=== PATIENT | female | born 1950 | race Caucasian/White ===

== ENCOUNTER 2024-11-19 04:08 | Inpatient (IN) | payer MEDICARE, SELFPAY ==
[2024-11-18 21:32] VITALS: BP 123/49
[2024-11-18 21:54] LABS: Hematocrit 28.6 % (37.0-47.0); Hemoglobin 9.1 g/dL (12.0-16.0); Mean Corp Hgb Conc. 31.8 g/dL (33.0-37.0); Mean Corpuscular Volume 80.6 fL (81.0-99.0); Nucleated Red Blood Cells % 0 %; Platelet Count 389 10^3/uL (130-400); Red Cell Dist. Width 16.7 % (11.5-14.5)
[2024-11-18 22:10] LABS: ALT (SGPT) 22 U/L (0-35); AST (SGOT) 30 U/L (14-36); Albumin 3.5 g/dl (3.5-5.0); Alkaline Phosphatase 89 U/L (38-126); Blood Urea Nitrogen 30 mg/dl (7-17); Calcium 10.1 mg/dl (8.4-10.2); Carbon Dioxide 21 mmol/L (22-30); Chloride 98 mmol/L (98-107); Potassium 4.1 mmol/L (3.5-5.1); Sodium 130 mmol/L (135-145); Total Protein 6.4 g/dl (6.3-8.2); eGFR 48.09
[2024-11-18 22:23] LABS: Glucose 688 mg/dl (70-99)
--- NOTE | 2024-11-18 23:08 | PHANOTE ---
11/18/2024, pt. gets her meds. filled at [facility] in [place]; pt. does not know the strength of any of the meds. she is taking; pharmacy records our outdated; pt. does not have recent ecw records; pharmacy closed at time of interview;
could not confirm pt.'s meds. at time of interview.
[2024-11-19] VITALS (22 sets, daily range): BP systolic 90–143; BP diastolic 39–77; BMI 25.1; BMI 26.6
[2024-11-19 00:02] LABS: Venous Blood Gas B.E. -3.1 mmol/L (-4 to +4); Venous Blood Gas O2 Sat % 91.3 %
[2024-11-19] MEDS: NOVOLIN R 10 UNITS SC (00:37)
[2024-11-19] MEDS: LASIX 80 MG IV (00:39)
--- NOTE | 2024-11-19 00:46 | ED.GENMED ---
History of Present Illness
General
Chief Complaint: Swelling
Source: patient
Time Seen by Provider: 11/19/24 00:08
History of Present Illness
History of Present Illness:
74-year-old female with past medical history of insulin-dependent diabetes, hyperlipidemia, chronic migraines, status post 'back surgery done at [place] due to osteoporosis' presenting to the emergency department for evaluation of feeling terrible
for the last few days, generally weak, bilateral lower extremity edema and shortness of breath. Patient states she noted her blood sugars being significantly elevated over the last 2 days greater than 500 despite taking her insulin. Family notes
that patient has had a progressive decline since being discharged from rehab over the last week or so. Patient did well postoperatively and pain has been under control, went to rehab following and did well there. Patient does admit to polyuria and
polydipsia. She does report good compliance with medications. No reported fevers. Patient does not believe she has been on any steroids recently. Daughter does note that the incision site did seem to have a little bit more redness today but no
reported fevers.
Past History
Past History
ED Past Medical History: Hypercholesterolemia and IDDM
ED Past Surgical History: , Gynecological and Orthopedic
Social History
Tobacco: Non-smoker
Alcohol: None
Drug: None
Personal:
Living: with family
Review of Systems
Review of Systems
All Other Systems: ROS reviewed and negative except as documented in HPI and ROS
Phy Exam
Physical Exam
Physical Exam:
GENERAL: Alert , ill-appearing
EYE: clear conjunctiva b/l
HEAD: NCAT
ENT: o/p clr, mmm.
CARDIAC: Regular rate and rhythm .
LUNGS: Clear breath sounds bilaterally, no acute respiratory distress, no wheezes/rales/rhonchi
ABDOMEN: Soft, without focal tenderness, no r/g, no cvat
NEUROLOGICAL: Alert and oriented
SKIN: Warm and dry, vertically oriented large incision to the mid thoracic spine extending towards the lumbar region with slight erythema more proximally and slight dehiscence of the wound but overall dry and without any purulent drainage
MUSCULOSKELETAL: significant bilateral lower extremity edema to the knees, well perfused.
PSYCH: Normal and appropriate interaction.
Scores
Heart Failure Risk
Heart Failure Risk Score: Not Applicable
Heart Score for Chest Pain Patients
STEMI patient?: Not applicable
Withdrawal Assessment of Alcohol
Withdrawal Assessment Completed?: Not applicable
Course
Orders/Labs/Results
Orders:
Orders
11/18/24 21:30
EKG [Electrocardiogram (*1)] Urgent
Reason for Study: Shortness of Breath
EKG- Treatment ONCE
11/18/24 21:40
B-Hydroxybutyrate Urgent
Comment: ADD ON
BNP [NT-proBNP] Urgent
CBC/With Diff [Complete Blood Count/With Diff] Urgent
CMP [Comprehensive Metabolic Panel] Urgent
Troponin I Urgent
Comment: ADD ON
11/18/24 23:03
Add On- LAB Urgent
Tests Added?: beta hydroxy
11/18/24 23:54
Venous Blood Gas Urgent
%Oxygen/Room Air: 21
11/19/24 00:18
Furosemide [Lasix] 80 mg IV NOW STA
Insulin Human Regular [Novolin R] 15 units SC NOW STA
11/19/24 00:19
US Periph Venous LOWER Ext Jorje Urgent
Comment:
Reason For Exam: edema, recent surgery
11/19/24 00:25
Add On- LAB Urgent
Tests Added?: troponin
Insulin Human Regular [Novolin R] 10 units SC NOW STA
11/19/24 00:35
BMP [Basic Metabolic Panel] Urgent
11/19/24 02:33
CXR2 [CR Chest - 2 Views ] Urgent
Comment:
Reason For Exam: CHF
11/19/24 02:44
Glucose Urgent
11/19/24 03:29
Dextrose 50%-Water [Dextrose 50% Syringe] 12.5 grams IV [id number] PRN
Diphenhydramine [Benadryl] 12.5 mg IV NOW STA
Insulin Human Regular [Novolin R] 5 units IV NOW STA
11/19/24 03:30
Bedside Glucose PRE IV Insulin- HyperK+ NOW
11/19/24 03:31
Admit/Transfer Patient As Directed
Co-Sign Provider:
Level of Care: Inpatient admission
Assign to:: IMU- Intermediate Care
Physician / Group: Jelani
Diagnosis: CHF
Reason for Hospitalization: CHF
Expected length of stay greater than two midnights?: Yes
ELOS- Estimated Length of Stay in days: 4
I certify the patient meets the requirements for IP care: Yes
PRN Pain Medication Management As Directed
May give lesser potent ordered pain med per pt: Yes
preference::
Protocol:: Medication orders for pain may be administered in a
manner that supports deferring to patient preference
when the pt is:
- Requesting an ordered lesser potent pain medication.
Least to most potent pain medications are defined
as: acetaminophen < NSAID < tramadol < opioids
(morphine, oxycodone, hydromorphone).
- Requesting a lesser dose of the same medication IF
ORDERED.
- Requesting a less intrusive route of administration
if both routes are prescribed by the provider (PO <
IV).
11/19/24 03:36
Code Status As Directed
Resuscitation Status: Full Code
11/19/24 04:00
Flush (0.9% Sodium Chloride) [Flush (Nss)] See Dose Instructions IV PER PROTOCOL
11/19/24 04:27
Blood Culture Q30M
DAVID Source: Blood/Venous
Specimen Description:
Blood Culture Q30M
DAVID Source: Blood/Venous
Specimen Description:
11/19/24 05:00
Bedside Glucose POST IV Insulin- HyperK+ Q1HX2,Q2HX2
11/19/24 05:15
Dextrose 50%-Water [Dextrose 50% Syringe] 12.5 grams IV [id number] PRN
Diphenhydramine [Benadryl] 12.5 mg IV Q4HPRN PRN
Glucagon [GlucaGen] 1 mg IM PRN PRN
HYDROmorphone [Dilaudid] 0.5 mg IV Q4HPRN PRN
11/19/24 05:15
Echo 2D MMode Doppler [Echo 2D MMode Color/Doppler] Routine
Reason for Study: CHF
CARDIOLOGY CONSULT Routine
Consulting Provider: August Tiwari
Was physician already notified: No
Reason for consult: CHF
Consult Notification Routine
Specialty to Notify: Cardiology
Date consulting provider notified: 11/19/24
Time consulting provider notified: :25
Notified:: Provider
Activity As Directed
Activity Level: Ambulate
With Assistance
Bedside Glucose Monitoring As Directed
Frequency: AC&HS
Additional Instructions:: Change to q6h if pt on TPN, tube feeding or not eating
Bladder Scan As Directed
Follow Bladder Retention/Intermittent Cath Algorithm?: Yes
PRN if no void in __ hours: 6
Frequency: Per Retention Algorithm
If Bladder Scan Result >: 400
then:: Straight cath
EKG with chest pain [ECG as needed] As Directed
ECG as needed for:: Chest Pain
I/O [Intake/ Output] As Directed
Frequency: Per unit guidelines
Orthostatic Vital Signs As Directed
Orthostatic VS Frequency: BID
Records Request [Obtain Records] As Directed
Dates of Information to be Released: Most Recent
Type of Information Requested: Entire Record
Obtain Records from: [facility] and [facility]
Straight Cath As Directed
Frequency: Per Retention Algorithm
Additional Instructions: straight cath as needed per acute urinary retention algorithm for 24 hrs
Additional Instructions: for bladder scan greater than 400 mL
Vital Signs As Directed
Frequency: Per unit guidelines
Weight As Directed
Frequency: Daily
Oxygen Therapy [O2 Therapy] [RESP] Routine
Titrate/Wean O2 to maintain O2 sat greater than (%): 94
Ot Eval And Treat Routine
PT Consult [Pt Eval And Treat] Routine
Activity Level: Ambulate
With Assistance
DX Deep Vein Thrombosis Video Routine
11/19/24 05:23
Basic Metabolic Panel IN AM
Complete Blood Count/No Diff IN AM
Ferritin Routine
Glycohemoglobin (HgbA1c) IN AM
Iron Routine
TSH Reflex To Free T4 Routine
Total Iron Binding Routine
Troponin I Q6H
11/19/24 Breakfast
2000 calorie (17 carb) Diabetic
At Your Request: Full Participation
Levothyroxine [Synthroid] 112 mcg PO DAILY @ 0600
11/19/24 07:30
Insulin Aspart Corrective Mod [Novolog Flexpen-Moderate Resistance] See Protocol SC AC
11/19/24 08:00
Acetaminophen [Tylenol] 1,000 mg PO TID
Aspirin Chewable [Low Strength Aspirin] 81 mg PO DAILY
Furosemide [Lasix] 40 mg IV BID AT 0800,1600
Loratadine [Claritin] 10 mg PO DAILY
insulin glargine [Lantus Solostar U-100 Insulin] 14 unit SC DAILY
11/19/24 12:23
Troponin I Q6H
11/19/24 18:00
Atorvastatin [Lipitor] 40 mg PO QPM
Enoxaparin Sodium [Lovenox] 40 mg SC QPM
Abnormal Lab Results
11/18/24 11/18/24 11/19/24
21:40 23:54 00:35
RBC 3.55 L 10^6/uL
(4.20-5.40)
Hgb 9.1 L g/dL
(12.0-16.0)
Hct 28.6 L %
(37.0-47.0)
MCV 80.6 L fL
(81.0-99.0)
MCH 25.6 L pg
(27.0-31.0)
MCHC 31.8 L g/dL
(33.0-37.0)
RDW 16.7 H %
(11.5-14.5)
MPV 11.1 H fL
(7.4-10.4)
Absolute Neuts (auto) 7.3 H 10^3/uL
(1.4-6.5)
Absolute Lymphs (auto) 1.1 L 10^3/uL
(1.2-3.4)
Neutrophils % 78.9 H %
(42.2-75.2)
Lymphocytes % 12.2 L %
(20.5-51.1)
VBG pO2 58 H mmHg
(30-50)
Sodium 130 L mmol/L 131 L mmol/L
(135-145) (135-145)
Carbon Dioxide 21 L mmol/L 21 L mmol/L
(22-30) (22-30)
BUN 30 H mg/dl 30 H mg/dl
(7-17) (7-17)
Creatinine 1.2 H mg/dL
(0.6-1.0)
Glucose 688 H* mg/dl 644 H* mg/dl
(70-99) (70-99)
Troponin I 0.320 H* ng/ml
B-Hydroxybutyrate 0.76 H mmol/L
(0.02-0.27)
POC Glucose
11/19/24 11/19/24 11/19/24
02:35 02:44 04:05
RBC
Hgb
Hct
MCV
MCH
MCHC
RDW
MPV
Absolute Neuts (auto)
Absolute Lymphs (auto)
Neutrophils %
Lymphocytes %
VBG pO2
Sodium
Carbon Dioxide
BUN
Creatinine
Glucose 434 H mg/dl
(70-99)
Troponin I
B-Hydroxybutyrate
POC Glucose 486 H* mg/dl 322 H mg/dl
(70-99) (70-99)
11/18/24 21:40
11/19/24 02:44
Vital Signs
Initial and Last Documented VS:
Initial Vital Signs
Temp Pulse Resp BP Pulse Ox
97.8 F 84 15 123/49 100
11/18/24 21:32 11/18/24 21:32 11/18/24 21:32 11/18/24 21:32 11/18/24 21:32
Last Documented Vital Signs
Temp Pulse Resp BP Pulse Ox
98.6 F 71 31 125/74 96
11/20/24 07:55 11/20/24 10:43 11/20/24 06:00 11/20/24 10:43 11/20/24 06:00
MDM/Problems Addressed
Differential Diagnosis Includes:
- DKA
- HHNK
- Hyperglycemia secondary to diabetes
- Postoperative complication
- CHF
- Valvular dysfunction
- DVT
- PE
- Postop hardware infection
MDM/Problems Addressed:
74-year-old female presenting to the emergency department for evaluation of generally feeling unwell, shortness of breath, fatigue and lower extremity edema. Also noting that her blood sugars have been significantly elevated over the last 2 days
despite taking her insulin as directed. She has had multiple readings of greater than 500 and 600. Here patient blood sugar is close to 700. Will initiate patient on subcutaneous insulin. Decision was made to hold IV fluids given concern for
patient being volume overloaded. BNP is well over 27,000. Patient will require admission for further evaluation. I ordered an ultrasound to rule out DVT given her recent surgery as well as sedentary state.
Chronic conditions affecting care: DM and Other
Acute Exacerbation and/or Progression of Chronic Illness: DM
*Radiology
Radiology exam reviewed: preliminary read by ED provider and radiology read reviewed
*Pulse Oximetry
SaO2: 94
Oxygen Mode of Delivery: Room air
Patient hypoxic: no
*EKG
Heart Rate: 86
Rate: normal
Rhythm: sinus
[place]: normal axis
Ischemia: non-specific ST changes
*Master Lay Out Specialist Interpretation
Rate: normal
Heart Rate: 88
Rhythm: sinus
*Critical Care Note
Total Time (30-74mins, 75-104mins- exclusive of procedures): 32
comment:
Critical care statement: A total of 32 minutes of critical care time was provided for this patient. This includes management of unstable vital signs, evaluation of the patient at bedside, reviewing the patient's pertinent medical records, discussion
with consultants, review of old EKGs and review of pertinent medical records. This time with separate from time utilized to perform the aforementioned documented procedures
Data Reviewed
Review of Other/Old Records Reveals: Labs and Records
Patient Management
Discussion with other providers: Hospitalist
Escalation/DeEscalation of care consider admission/obs:
Patient's labs noted for significant hyperglycemia. BNP greater than 27,000. Troponin is elevated 0.320 which is likely from demand ischemia as opposed to ischemic abnormalities. There is no acute ischemic changes on EKG. Will defer heparin to
hospitalist at this time as I do not suspect ACS as the main cause for patient's symptoms. Hospitalist team is aware and accepts for continued evaluation and treatment.
ED Attending Note
-
Portions of this chart may have been created with voice recognition software.� Occasional wrong word or��sound alike� substitutions may have occurred due to the inherent limitations of voice recognition software.
Discharge Plan
Departure
Patient Disposition: Admit
Date of Disposition: 11/19/24
Time of Disposition: 01:53
Presentation/result/management discussed w/ accepting MD/DO: Hospitalist
Discharge Problem:
Diabetes mellitus with hyperglycemia, CHF (congestive heart failure), Elevated troponin
Interventions
Interventions:
*Risk Screen - Suicide Last Done: 11/18/24 21:32
*General Assessment Last Done: 11/18/24 21:32
*Neglect/Abuse Screening Last Done: 11/18/24 22:59
*ED- Fall Risk Assessment Last Done: 11/18/24 23:59
*ED COVID-19 Vaccine History Last Done: 11/18/24 21:32
*Nursing Disposition Last Done: 11/19/24 05:30
ED- Cardiac Assessment Last Done: 11/19/24 03:04
ED- Pulmonary Assessment Last Done: 11/19/24 03:04
ED-Skin Assessment Last Done: 11/18/24 23:59
Discharge Date and Time
Discharge Date/Time: 11/19/24 05:40
[2024-11-19 01:01] LABS: Blood Urea Nitrogen 30 mg/dl (7-17); Calcium 9.4 mg/dl (8.4-10.2); Carbon Dioxide 21 mmol/L (22-30); Chloride 102 mmol/L (98-107); Estimated Creatinine Clearance 49 ml/min; Potassium 4.1 mmol/L (3.5-5.1); Sodium 131 mmol/L (135-145); eGFR 59.86
[2024-11-19 01:16] LABS: Troponin I 0.320 ng/ml
[2024-11-19 01:16] LABS: Glucose 644 mg/dl (70-99)
[2024-11-19 02:37] LABS: Glucose - Point of Care 486 mg/dl (70-99)
--- NOTE | 2024-11-19 03:42 | HPS.HSE ---
Family Physician
-
Family Physician: Mustapha English
Chief Complaint
-
Leg pain, Itching, Swelling
History of Present Illness
Patient is a 74y F with PMH significant for DM-I, hypertension and CHF who presents to ED complaining of itching all over, b/l LE swelling and leg pain. Patient states that she developed back pain a few months ago. She was evaluated on multiple
occasions at [place] and reportedly ultimately diagnosed with lumbar fractures requiring surgical fixation. She underwent lumbar fusion at [facility] at the end of September - followed by a rehab stay. Patient states that she was doing well until the past
week when she noted significant swelling in the LEs with increased pain / 'tightness' in both calves. She complains of itching all over and palpable hives / rash. For the past 2 days her glucose at home has been very high.
Patient states that her valsartan was changed to losartan and otherwise denies any recent med changes, new medications, new detergents / shampoos / soaps / etc.
She denies any cough, sore throat, fevers / chills, etc.
She admits to shortness of breath with activity. She denies chest pain.
Medical History
Past Medical History
Past Medical History: Reports Other
Additional Past Medical History:
DM-I
Chronic HF - Unknown Type
Hypertension
Hypothyroidism
Osteoporosis
Latent TB (Treated with 9 months of INH in 1970s)
DVT / PE
Past Surgical History: Reports Other
Additional Past Surgical History:
Lumbar Fusion ([facility] in September 2024)
RLE ORIF (extensive surgery following trauma)
WINDY
Social History
Tobacco: Former Smoker
Alcohol: None
Drug: None
Family History
Family History: Not pertinent
Allergies / Home Medications
Allergies reflects when Allergies were last updated in [facility].
Home Medications with original date entered in [facility]
Allergy/Medication List:
Allergies
Allergy/AdvReac Type Severity Reaction Status Date / Time
cefazolin (Cefazolin) Allergy Severe Shortness Verified 11/19/24 00:32
of Breath
NPH, human insuli Allergy Severe Unknown Verified 11/19/24 00:32
*RETIRED-02/04/12 (From
Novolin N)
latex (Latex) Allergy Mild Rash Verified 11/19/24 00:32
Home Medications
Benadryl 1 tab PO HS 11/18/24
Metoprolol 1 tab PO HS 11/18/24
atorvastatin 1 tab PO HS 11/18/24
cholecalciferol (vitamin D3) 125 mcg (5,000 unit) capsule 125 mcg PO DAILY 11/18/24
fenofibrate 1 tab PO DAILY 11/18/24
insulin aspart U-100 100 unit/mL (3 mL) subcutaneous pen (Novolog FlexPen U-100 Insulin aspart) 6 - 8 sliding scale dose SC DIRECTED 11/18/24
insulin glargine 100 unit/mL (3 mL) subcutaneous pen (Lantus Solostar U-100 Insulin) 10 unit SC HS 11/18/24
levothyroxine 1 tab PO DAILY 11/18/24
losartan 1 tab PO DAILY 11/18/24
Patient does not know many doses, etc.
Review of Systems
-
History Source: Patient
A 12 point ROS was completed and negative except as noted: Yes
Constitutional: Reports Fatigue; Denies Fever or Chills
EENT: Denies Sore Throat
Respiratory: Reports Trouble Breathing (dyspnea with exertion); Denies Cough
Cardiac: Denies Chest Pain or Palpitations
Abdomen/GI: Denies Abdominal Pain, Nausea, Vomiting, Diarrhea, Constipated, Bloody Stools or Black Stools
: Denies Dysuria, Frequency, Flank Pain or Incontinence
Musculoskeletal: Reports Joint Pain, Muscle Pain and Edema
Skin: Reports Itching and Rash
Neurological: Denies Dizzy or Headache
Psych: Denies Depression or Anxiety
Physical Exam
Vital Signs
Vital Signs
Temp Pulse Resp BP Pulse Ox
97.8 F 81 22 137/77 95
11/18/24 21:32 11/19/24 02:00 11/19/24 02:00 11/19/24 00:39 11/19/24 01:45
Physical Exam
General: Other (74y F in moderate distress due to itching / pain.)
HEENT: Moist mucous membranes, PERRLA and Other (Neck supple.)
Respiratory: Other (Decreased BS at bases - few bibasilar rales.)
Cardiac: S1/S2 and Regular Rhythm; No Murmur
GI: Soft, Non Tender, Non Distended and Normal Bowel Sounds
Musculoskeletal: No Clubbing, No Cyanosis and Other (2+ pitting edema b/l LEs. )
Skin: Other (Diffuse raised rash / scattered hives. Surgical incision over the back with small area of crusting at proximal aspect. No bleeding / discharge.)
Neuro: AO x 3 and Nonfocal/grossly intact
Laboratory Results
-
11/18/24 21:40
Laboratory Results
Total Bilirubin 1.1 mg/dl (0.2-1.3) 11/18/24 21:40
AST 30 U/L (14-36) 11/18/24 21:40
ALT 22 U/L (0-35) 11/18/24 21:40
Alkaline Phosphatase 89 U/L (38-126) 11/18/24 21:40
Troponin I Cancelled 11/19/24 00:19
Impression/Plan
-
A/P: Patient is a 74y F with PMH significant for DM-I, CHF and hypertension who presents to ED complaining of LE swelling, pain, itching, etc.
Acute on Chronic HF - Unknown Type
- Admit for further evaluation and treatment.
- Patient with LE edema, markedly elevated BNP, bilateral effusions on CXR, etc.
- IV Lasix BID for now.
- Update Echo - obtain prior records from [facility].
- Follow I/Os, daily weights, etc.
- Cardiology evaluation for additional recommendations.
Abnormal Troponin
- Likely secondary to the above.
- No chest pain. EKG with non-specific changes.
- Follow troponin to peak.
- ASA daily. Statin. Cardiology eval as noted.
s/p Lumbar Fusion
- Incision healing with small open area at proximal aspect.
- Does not appear grossly infected. No bowel / bladder issues.
- Bilateral LE pain seems mediated by / due to swelling primarily.
- Local care. Follow for any new complaints. PT eval.
Rash / Pruritis
- Unclear etiology. Hives / itching diffusely.
- Patient denies any new medications, etc.
- Does have listed latex allergy - ? exposure during healthcare stays recently , though unlikely.
- Antihistamines and monitor for any new / worsening symptoms.
DM-I, Uncontrolled
- Glucose > 600 on initial labs with anion gap =11.
- Insulin IV and SC in the ED.
- Given Lantus dose this AM.
- Follow glucose and cover with SSI as needed.
- Update A1C.
- No IVFs given volume overload / CHF.
Microcytic Anemia
- ? acute v chronic. Check iron studies, etc.
- Follow H&H for changes.
- Monitor for any gross blood loss, etc.
Hypothyroidism
- Continue T4 supplementation.
- Update TFTs.
DVT Prophylaxis: US negative for DVT in the ED this evening. Lovenox.
Code Status: Full
[2024-11-19 03:53] LABS: Glucose 434 mg/dl (70-99)
[2024-11-19 04:06] LABS: Glucose - Point of Care 322 mg/dl (70-99)
[2024-11-19] MEDS: BENADRYL 12.5 MG IV ×2 (04:28→05:49)
[2024-11-19 04:51] LABS: Glucose - Point of Care 307 mg/dl (70-99)
[2024-11-19] MEDS: NOVOLIN R 4 UNITS SC (04:54)
[2024-11-19 05:37] LABS: Hematocrit 25.3 % (37.0-47.0); Hemoglobin 8.1 g/dL (12.0-16.0); Mean Corp Hgb Conc. 32.0 g/dL (33.0-37.0); Mean Corpuscular Volume 79.8 fL (81.0-99.0); Platelet Count 359 10^3/uL (130-400); Red Cell Dist. Width 16.4 % (11.5-14.5)
[2024-11-19] MEDS: SYNTHROID 112 MCG PO (05:49)
[2024-11-19 05:55] LABS: Blood Urea Nitrogen 29 mg/dl (7-17); Calcium 9.9 mg/dl (8.4-10.2); Carbon Dioxide 24 mmol/L (22-30); Chloride 106 mmol/L (98-107); Estimated Creatinine Clearance 44 ml/min; Glucose 241 mg/dl (70-99); Iron 37 ug/dl (37-170); Potassium 3.3 mmol/L (3.5-5.1); Sodium 138 mmol/L (135-145); eGFR 59.86
--- NOTE | 2024-11-19 05:55 | PTCARENOTE ---
Received pt from ED via stretcher. Stand and pivot to bed with minimal weight bearing on right knee d/t pain. Pt unable to stop scratching at skin. Rash on chest/arms; no pain associated. Back has a midline scab from surgery prior to admission,
scan on right buttock, right great toe bruised and sore on left lower calf. IV Benadryl administered per order (see MAR). Admission completed as documented. Oriented pt to room. Call valle within reach.
[2024-11-19 06:03] LABS: Glucose - Point of Care 243 mg/dl (70-99)
[2024-11-19 06:04] LABS: Total Iron Binding Capacity 433 ug/dl (265-497)
[2024-11-19 06:06] LABS: Troponin I 0.447 ng/ml
[2024-11-19] MEDS: DILAUDID 0.5 MG IV (06:13)
[2024-11-19 06:31] LABS: Ferritin 40.0 ng/ml (11.1-264.0)
[2024-11-19 07:32] LABS: Glucose - Point of Care 144 mg/dl (70-99)
--- NOTE | 2024-11-19 07:58 | CON.CAR ---
Consultation
Consultation Request
Date/Time Consultation Requested: 11/19/2024, 0336
Date/Time Consultation Performed: 11/19/2024, 0745
Requesting Provider: Dr Palomares
Performing Provider: Dr Tiwari
Reason for Consultation: HF
Medical History
-
Chief Complaint: LE Swelling, itching
History of Present Illness:
Patient is a pleasant 74-year-old female with a past medical history significant for diabetes mellitus type 1, hypertension, hypothyroidism, osteoporosis, latent TB treated in the , prior history of DVT/PE, and reported heart failure of unknown
EF who presents due to fatigue, weakness, lower extremity swelling, shortness of breath, itchiness, and hyperglycemia. Patient somnolent but easily arousable on examination. Per nursing, patient had recently received IV opioids for pain and
pruritus. Patient denies any symptoms at this current time. Patient denies chest pain, shortness of breath, palpitations, lightheadedness, dizziness, or weakness. In review of medical record, patient had reported feeling unwell for a few days
prior to admission with increasing lower extremity swelling and shortness of breath as well as difficult to control blood sugars. It is reported that she had progressive decline since discharge from her rehab roughly 1 week ago. Primary service
awaiting records from [facility].
Past Medical History
Past Medical History: Other (See HPI)
Past Surgical History: Other (Lumbar fusion September 2024, [facility], [place], )
Social History
Tobacco: Non-Smoker
Alcohol: None
Drug: None
Personal:
Living: With Family
Family History
Family History: Reviewed & Not Pertinent
Allergies / Home Medications
Allergy/AdvReac Type Severity Reaction Status Date / Time
cefazolin (Cefazolin) Allergy Severe Shortness Verified 11/19/24 00:32
of Breath
NPH, human insuli Allergy Severe Unknown Verified 11/19/24 00:32
*RETIRED-09/18/12 (From
Novolin N)
latex (Latex) Allergy Mild Rash Verified 11/19/24 00:32
�Medication �Instructions �Recorded �Confirmed �Type
Benadryl 1 tab PO HS 11/18/24 History
Metoprolol 1 tab PO HS 11/18/24 History
atorvastatin 1 tab PO HS 11/18/24 History
cholecalciferol (vitamin D3) 125 125 mcg PO DAILY 11/18/24 11/18/24 History
mcg (5,000 unit) capsule
fenofibrate 1 tab PO DAILY 11/18/24 History
insulin aspart U-100 100 unit/mL 6 - 8 sliding scale dose SC 11/18/24 11/18/24 History
(3 mL) subcutaneous pen (Novolog DIRECTED
FlexPen U-100 Insulin aspart)
insulin glargine 100 unit/mL (3 10 unit SC HS 11/18/24 History
mL) subcutaneous pen (Lantus
Solostar U-100 Insulin)
levothyroxine 1 tab PO DAILY 11/18/24 History
losartan 1 tab PO DAILY 11/18/24 History
Review of Systems
-
History Source: Patient
Constitutional: Weight Gain and Fatigue
EENT: No Symptoms
Respiratory: Trouble Breathing
Cardiac: No Symptoms
Abdomen/GI: No Symptoms
: No Symptoms
Musculoskeletal: Edema
Skin: Itching
Neurological: No Symptoms
Endocrine: Polyuria and Polydipsia
Hematologic/Lymphatic: No Symptoms
Physical Exam
Vital Signs
Temp Pulse Resp BP Pulse Ox
97.6 F 79 16 130/69 94
11/19/24 07:29 11/19/24 06:00 11/19/24 06:00 11/19/24 05:30 11/19/24 06:00
Lab Results
11/19/24 05:23
11/19/24 06:00
Troponin I 0.447 ng/ml H* D 11/19/24 05:23
Vib-Z-Jtnwbqbjjat Pept > 13477 pg/ml 11/18/24 21:40
Physical exam:
GENERAL: no acute distress, somnolent but easily arousable
EYE: sclera anicteric
NECK: Supple, no JVD, no carotid bruit appreciated
ENT: normal nose, moist mucosal membranes
CARDIAC: Regular rate and rhythm, +S1/S2, no murmur, rubs, or gallops
CHEST/PULMONARY: Poor inspiratory effort, decreased global breath sounds, bibasilar crackles
ABDOMEN: Soft, without focal tenderness or distention
NEUROLOGICAL: Alert and oriented x3, somnolent but easily arousable
SKIN: Warm and dry, no rash, 2+ pitting edema bilateral lower extremities
PSYCH: Normal and appropriate interaction.
Telemetry: Sinus rhythm
Impression / Plan
-
PCP: Mustapha English
Hot Dog Vender: Unknown
Impression:
Acute on chronic heart failure, unknown type
� Unclear LVEF or prior history of heart failure
� Reported by documentation patient has history of heart failure, records pending
� BNP greater than 27,000
� Physical exam demonstrating volume overload
� EKG sinus rhythm with nonspecific ST-T abnormality
Elevated troponin, likely acute myocardial injury
� Initial value 0.32, increasing to 0.447
� EKG as mentioned in sinus rhythm with nonspecific ST-T abnormality
� No prior ischemic history
� Likely related to acute on chronic heart failure and associated medical condition
Hypertension
Diabetes mellitus type 1, poorly controlled
Recent lumbar fusion
Microcytic anemia
Hypothyroidism
Pruritus
Recommendations:
� 2D echocardiogram assess cardiac size, shape, function, and valvular anatomy
� Obtain medical records from prior hospitalization as well as outpatient signal wirer, pending from primary service
� Agree with aspirin, statin, trend troponin to peak, may need ischemic evaluation prior to discharge
� IV Lasix twice daily with strict monitoring intake and output, daily weights
� Monitor on telemetry
� Further recommendations to follow
Discussed with nursing
Data Reviewed
-
EKG: Tracing Personally Visualized and interpreted
Radiology: Report Reviewed by me
Labs: Labs Reviewed by me
Old Records: Requested
[2024-11-19] MEDS: NOVOLOG FLEXPEN-MODERATE RESISTANCE SC ×2 (08:42→17:34)
[2024-11-19 09:08] LABS: Glycohemoglobin (HgbA1c) 8.6 % (4.0-5.6)
--- NOTE | 2024-11-19 09:16 | W.PN.HOSP.TC ---
Today's Communication/Plan
-
see bold
Assessment / Plan
Assessment / Plan
HPI: 74y F with PMH significant for DM-I, hypertension and CHF who presents to ED complaining of itching all over, b/l LE swelling and leg pain. Patient states that she developed back pain a few months ago. She was evaluated on multiple
occasions at [place] and reportedly ultimately diagnosed with lumbar fractures requiring surgical fixation. She underwent lumbar fusion at [facility] at the end of September - followed by a rehab stay. Patient states that she was doing well until the past
week when she noted significant swelling in the LEs with increased pain / 'tightness' in both calves. She complains of itching all over and palpable hives / rash. For the past 2 days her glucose at home has been very high. Patient states that her
valsartan was changed to losartan and otherwise denies any recent med changes, new medications, new detergents / shampoos / soaps / etc
#Acute on chronic heart failure, unknown type
Cardiology following, continue Lasix 40 mg IV twice daily
Echocardiogram requested, trend creatinine, trend daily weights
#Nonischemic myocardial injury troponin elevation
Likely from CHF
#Status post recent lumbar fusion
Small open wound at the proximal aspect noted
Wound care, start IV Ancef for surrounding erythema
#Hypokalemia
#Hypomagnesemia
Replete, recheck a.m. labs
#Dermatitis
Suspect secondary to allergy
Triamcinolone ointment 3 times daily, Benadryl as needed
#Uncontrolled type 1 diabetes with severe hyperglycemia
Not in diabetic ketoacidosis
Hemoglobin A1c 8.6
Ordered Lantus 14 units subcu daily here, sliding scale insulin
#Iron deficiency anemia, likely chronic
Iron studies reviewed
Start oral iron, trend hemoglobin
#Hypothyroidism
TSH normal, continue levothyroxine
DVT prophylaxis�subcu Lovenox
Full code
Physical Exam
General: No acute distress
HEENT: Normocephalic, Atraumatic, EOMI, MMM
Respiratory:
Diminished breath sounds at the bases with faint basilar crackles
Cardiac: Normal S1/S2, Regular Rate and Rhythm
GI: Soft, Nontender, Nondistended, Normal Bowel Sounds
Extremities: No Clubbing, Cyanosis
Bilateral lower extremity edema
Neuro: Nonfocal/Grossly Intact
Psych: Calm, Cooperative
Derm:
Erythematous maculopapular rash noted on her chest, with scratch freeman
Anticipated Discharge: > 48 hours
Subjective/Interval History
-
Date of Service: November 19, 2024
Patient reports being sleepy. She denies shortness of breath. She has an itchy rash on her chest. No fever, no vomiting.
Objective Data
-
Labs:
Laboratory Results
11/18/24 11/19/24 11/19/24
21:40 00:35 02:44
WBC 9.3
Hgb 9.1 L
Hct 28.6 L
Plt Count 389
Sodium 130 L 131 L
Potassium 4.1 4.1
Chloride 98 102
Carbon Dioxide 21 L 21 L
BUN 30 H 30 H
Creatinine 1.2 H 1.0
Glucose 688 H* 644 H* 434 H
Calcium 10.1 9.4
Total Bilirubin 1.1
AST 30
ALT 22
Alkaline Phosphatase 89
11/19/24 11/19/24
05:23 06:00
WBC 8.7
Hgb 8.1 L
Hct 25.3 L
Plt Count 359
Sodium 138
Potassium 3.3 L Cancelled
Chloride 106
Carbon Dioxide 24
BUN 29 H
Creatinine 1.0
Glucose 241 H
Calcium 9.9
Total Bilirubin
AST
ALT
Alkaline Phosphatase
Vital Signs:
Vital Signs
Temp Pulse Resp BP Pulse Ox
97.6 F 79 16 130/69 94
11/19/24 07:29 11/19/24 06:00 11/19/24 06:00 11/19/24 05:30 11/19/24 06:00
[2024-11-19] MEDS: LASIX 40 MG IV ×2 (09:44→16:16)
[2024-11-19] MEDS: TYLENOL 1000 MG PO ×2 (09:44→16:15)
[2024-11-19] MEDS: CLARITIN 10 MG PO (09:44)
[2024-11-19] MEDS: LOW STRENGTH ASPIRIN 81 MG PO (09:44)
[2024-11-19 09:50] LABS: Magnesium 1.5 mg/dl (1.6-2.3)
[2024-11-19] MEDS: LANTUS 0.14 UNITS SC (10:22)
[2024-11-19] MEDS: KCL ELIXIR 40 MEQ PO ×2 (10:22→22:12)
[2024-11-19] MEDS: MAGNESIUM SULFATE 50 IV (10:23)
[2024-11-19 10:51] LABS: Glucose - Point of Care 132 mg/dl (70-99)
[2024-11-19] MEDS: TRIAMCINOLONE ACETONIDE 0.1% OINTMENT 1 APPLIC TOPICAL ×3 (12:03→21:15)
[2024-11-19 12:35] LABS: Glucose - Point of Care 197 mg/dl (70-99)
[2024-11-19 13:09] LABS: Troponin I 0.515 ng/ml
[2024-11-19] MEDS: UNASYN IV ×2 (13:23→17:16)
[2024-11-19] MEDS: FERROUS SULFATE ORAL LIQUID 300 MG PO (14:44)
[2024-11-19] MEDS: NOVOLOG FLEXPEN-MODERATE RESISTANCE 5 UNITS SC (14:44)
[2024-11-19 14:54] LABS: Glucose - Point of Care 283 mg/dl (70-99)
[2024-11-19] MEDS: LIPITOR 40 MG PO (16:15)
[2024-11-19] MEDS: LOVENOX 40 MG SC (16:16)
[2024-11-19 17:44] LABS: Glucose - Point of Care 108 mg/dl (70-99)
--- NOTE | 2024-11-19 17:53 | PTCARENOTE ---
Rec'd pt this AM. Lethargic and drowsy but easily arousable. Good PO intake, vital signs stable. pt unable to void. Straight cath x2. Trops remain elevated. Dr. Cruz and Dr. Waller updated.
[2024-11-19 20:11] LABS: Troponin I 0.366 ng/ml
--- NOTE | 2024-11-19 21:10 | W.PN.UPDATE ---
Update Note
Progress Note Update
~ 21:00 - Patient hypotensive BP 90/40 MAP 60, repeat BP 93/39 MAP 56, HR 73, 98% on 2L NC, respirations 15, afebrile 97.6. Patient lethargic, does wake to verbal stimuli, then falls back to sleep. Lungs clear. Ordered NSS 250 mls fluid bolus.
~21:45 Patient responded well to small fluid bolus. Alert, Ox3, having conversation with her RN. BP 123/52 MAP 73, HR 90. Noted to have cloudy urine, will order UA reflex to cx.
UA resulted, cloudy, + leukocyte esterase, Negative nitrites, Urine WBC >100, urine yeast present. Patient currently on Unasyn 3 g Q6H. Possible contamination, repeat UA ordered to confirm.
[2024-11-19] MEDS: NSS 250 IV (21:14)
[2024-11-19] MEDS: KCL ELIXIR PO (21:15)
[2024-11-19] MEDS: TYLENOL PO (21:15)
[2024-11-19 21:16] LABS: Glucose - Point of Care 333 mg/dl (70-99)
--- NOTE | 2024-11-19 21:17 | PTCARENOTE ---
Received pt at change of shift. Pt arousable but unable to stay awake long enough for a conversation. Oriented to place and time. Extremely lethargic. BP 90s/40s with MAPs in the 50s and low 60s. HS Accucheck was 333. Notified BOILERS AND PRESSURE VESSELS INSPECTOR. 250 ml
bolus ordered and administered. No HS PO meds given as pt is unable to stay awake long enough to take a sip.
--- NOTE | 2024-11-19 22:20 | PTCARENOTE ---
By the end of the 250 ml bolus, pt woke up and able to have full, oriented conversation. Able to take PO potassium elixir as ordered. Gandhi placed for acute retention. Urine cloudy. POCKET AND PULLEY MACHINE OPERATOR placed order for UA. Urine sample sent to lab.
[2024-11-19 22:23] LABS: Urine Character Cloudy (Clear)
[2024-11-19 22:32] LABS: Urine White Cell >100 /HPF (0-5)
[2024-11-20] VITALS (15 sets, daily range): BP systolic 105–142; BP diastolic 47–96; PULSE 73; O2SAT 98; BMI 26.8
[2024-11-20] MEDS: UNASYN IV ×5 (00:51→23:03)
[2024-11-20 03:41] LABS: Hematocrit 28.4 % (37.0-47.0); Hemoglobin 9.3 g/dL (12.0-16.0); Mean Corp Hgb Conc. 32.7 g/dL (33.0-37.0); Mean Corpuscular Volume 79.1 fL (81.0-99.0); Platelet Count 292 10^3/uL (130-400); Red Cell Dist. Width 16.5 % (11.5-14.5)
[2024-11-20 04:05] LABS: Blood Urea Nitrogen 28 mg/dl (7-17); Calcium 9.5 mg/dl (8.4-10.2); Carbon Dioxide 28 mmol/L (22-30); Chloride 105 mmol/L (98-107); Estimated Creatinine Clearance 40 ml/min; Glucose 339 mg/dl (70-99); Potassium 4.9 mmol/L (3.5-5.1); Sodium 136 mmol/L (135-145); eGFR 53.39
[2024-11-20 04:18] LABS: Troponin I 0.274 ng/ml
[2024-11-20] MEDS: SYNTHROID 112 MCG PO (05:28)
[2024-11-20] MEDS: KCL ELIXIR PO (07:45)
[2024-11-20 07:55] LABS: Glucose - Point of Care 379 mg/dl (70-99)
[2024-11-20] MEDS: NOVOLOG FLEXPEN-MODERATE RESISTANCE 9 UNITS SC (08:56)
[2024-11-20] MEDS: LASIX IV (08:57)
[2024-11-20] MEDS: TRIAMCINOLONE ACETONIDE 0.1% OINTMENT 1 APPLIC TOPICAL ×3 (08:57→23:03)
[2024-11-20] MEDS: LOW STRENGTH ASPIRIN 81 MG PO (08:57)
[2024-11-20] MEDS: LANTUS 0.14 UNITS SC (08:57)
[2024-11-20] MEDS: TYLENOL 1000 MG PO ×3 (08:57→23:03)
[2024-11-20] MEDS: CLARITIN 10 MG PO (08:57)
--- NOTE | 2024-11-20 09:46 | W.PN.HOSP.TC ---
Today's Communication/Plan
-
see bold
Assessment / Plan
Assessment / Plan
HPI: 74y F with PMH significant for DM-I, hypertension and CHF who presents to ED complaining of itching all over, b/l LE swelling and leg pain. Patient states that she developed back pain a few months ago. She was evaluated on multiple
occasions at [place] and reportedly ultimately diagnosed with lumbar fractures requiring surgical fixation. She underwent lumbar fusion at [facility] at the end of September - followed by a rehab stay. Patient states that she was doing well until the past
week when she noted significant swelling in the LEs with increased pain / 'tightness' in both calves. She complains of itching all over and palpable hives / rash. For the past 2 days her glucose at home has been very high. Patient states that her
valsartan was changed to losartan and otherwise denies any recent med changes, new medications, new detergents / shampoos / soaps / etc
#Acute on chronic heart failure with a reduced ejection fraction
#Severe pulmonary hypertension
Cardiology following, continue Lasix 40 mg IV twice daily
Echo EF 35-40%, trend creatinine, trend daily weights
#Right knee pain
#Recent mechanical fall 3 days prior to admission
Check x-rays, lidocaine patch
#Nonischemic myocardial injury troponin elevation
Likely from CHF
#Status post recent lumbar fusion
Small open wound at the proximal aspect noted
Wound care, started IV Ancef for surrounding erythema, D2/7
#Hypokalemia
#Hypomagnesemia
Repleted and resolved
#Dermatitis
Suspect secondary to allergy
Triamcinolone ointment 3 times daily, Benadryl as needed
#Uncontrolled type 1 diabetes with severe hyperglycemia
Not in diabetic ketoacidosis
Hemoglobin A1c 8.6
Increase Lantus to 20 units subcu daily, continue sliding scale insulin
#Iron deficiency anemia, likely chronic
Iron studies reviewed
Start oral iron, trend hemoglobin
#Hypothyroidism
TSH normal, continue levothyroxine
DVT prophylaxis�subcu Lovenox
Full code
Total time spent to see the patient on the floor, examine the patient, review data and lab results, discuss treatment plan with patient, nursing staff around 50 minutes.
Physical Exam
General: No acute distress
HEENT: Normocephalic, Atraumatic, EOMI, MMM
Respiratory:
Diminished breath sounds at the bases with faint basilar crackles
Cardiac: Normal S1/S2, Regular Rate and Rhythm
GI: Soft, Nontender, Nondistended, Normal Bowel Sounds
Extremities: No Clubbing, Cyanosis
Bilateral lower extremity edema
Neuro: Nonfocal/Grossly Intact
Psych: Calm, Cooperative
Derm:
Erythematous maculopapular rash noted on her chest, with scratch freeman
Anticipated Discharge: > 48 hours
Subjective/Interval History
-
Date of Service: November 20, 2024
Patient reports feeling much better. The itchiness on her rash has improved. Her shortness of breath has resolved. No fever, no vomiting.
Objective Data
-
Labs:
Laboratory Results
11/20/24
03:29
WBC 7.7
Hgb 9.3 L
Hct 28.4 L
Plt Count 292
Sodium 136
Potassium 4.9 D
Chloride 105
Carbon Dioxide 28
BUN 28 H
Creatinine 1.1 H
Glucose 339 H
Calcium 9.5
Vital Signs:
Vital Signs
Temp Pulse Resp BP Pulse Ox
98.6 F 91 31 126/79 96
11/20/24 07:55 11/20/24 06:00 11/20/24 06:00 11/20/24 06:00 11/20/24 06:00
I&O
11/19/24 11/20/24 11/21/24
06:59 06:59 06:59
Output Total 3025 / 3025
Balance -3025 / -3025
--- NOTE | 2024-11-20 09:52 | W.PN.CARDCBS ---
Today's Communication / Plan
-
Hold Lasix with possible overdiuresis
Add low-dose Coreg
Consider ischemic evaluation but need to check old records regarding ejection fraction
Impression / Plan
-
PCP: Mustapha English
Barrel Lathe Operator Outside: Unknown
Impression:
Acute systolic CHF
Cardiomyopathy ejection fraction of 35-40% on 11/19/2024
Severe pulm hypertension 11/19/2024
Non-STEMI with troponin of 0.5
Hypertension
Diabetes mellitus type 1, poorly controlled
Recent lumbar fusion
Microcytic anemia
Hypothyroidism
History of DVT/PE
Echocardiogram 11/19/2024: Ejection fraction 35 to 40%, hypokinesis of inferior septum, anterior septum, inferior and apex. Severe pulm hypertension PA systolic of 68 mmHg assuming right atrial pressure 15 mm gonzález
Recommendations:
She has significant diuresis on 11/19 and was hypotensive requiring IV fluids during the night
Will hold IV Lasix for now
Ejection fraction 35 to 40%
Will add low-dose Coreg if blood pressure tolerates
Try to get records from prior admission
Might consider ischemic evaluation depending on her course with possible catheterization
Discussed with nursing
Progress Note - Barrel Lathe Operator Outside
Subjective
Date of Service: November 20, 2024
No complaints. Had hypotension during the night responding to IV fluids
Objective
Labs:
11/20/24 03:29
11/20/24 03:29
Labs
Hgb 9.3 g/dL (12.0-16.0) L 11/20/24 03:29
Hct 28.4 % (37.0-47.0) L 11/20/24 03:29
Plt Count 292 10^3/uL (130-400) 11/20/24 03:29
Sodium 136 mmol/L (135-145) 11/20/24 03:
Potassium 4.9 mmol/L (3.5-5.1) D 11/20/24 03:29
BUN 28 mg/dl (7-17) H 11/20/24 03:29
Creatinine 1.1 mg/dL (0.6-1.0) H 11/20/24 03:29
Glucose 339 mg/dl (70-99) H 11/20/24 03:29
Troponins
11/18/24 11/19/24 11/19/24
21:40 00:19 05:23
Troponin I 0.320 H* Cancelled 0.447 H* D
11/19/24 11/19/24 11/19/24
12:23 17:48 19:40
Troponin I 0.515 H* Cancelled 0.366 H* D
11/20/24
03:29
Troponin I 0.274 H* D
Vital Signs and I&O:
Vital Signs
Temp Pulse Resp BP Pulse Ox
98.6 F 91 31 126/79 96
11/20/24 07:55 11/20/24 06:00 11/20/24 06:00 11/20/24 06:00 11/20/24 06:00
Vital Signs
Temp Pulse Resp BP Pulse Ox
98.6 F 91 31 126/79 96
11/20/24 07:55 11/20/24 06:00 11/20/24 06:00 11/20/24 06:00 11/20/24 06:00
Intake & Output
11/18/24 11/19/24 11/20/24 11/21/24
06:59 06:59 06:59 06:59
Output Total 3025 / 3025
Balance -3025 / -3025
Physical Exam
Physical Exam
General: Well developed, well nourished in NAD.
Neck: Supple, no JVD, HJR, carotids +2 B/L, no bruits bilaterally.
Heart: Non displaced PMI, RRR, no murmurs, No S3, S4, no rubs.
Lungs: Scattered rhonchi
Extremities: No clubbing, cyanosis or edema bilaterally.
Neuro: Grossly nonfocal, awake, alert and oriented x3.
[2024-11-20] MEDS: COREG 3.125 MG PO ×2 (10:43→20:06)
[2024-11-20] MEDS: LANTUS 0.06 UNITS SC (10:43)
[2024-11-20 12:25] LABS: Glucose - Point of Care 275 mg/dl (70-99)
[2024-11-20] MEDS: NOVOLOG FLEXPEN-MODERATE RESISTANCE 5 UNITS SC (12:57)
--- NOTE | 2024-11-20 14:42 | CM ---
Alert awake oriented patient who lives with her Álvaro and dgt Erlinda in a 3 story home with 7 steps to enter and 10 steps to bed/bathroom. She is independent in activates of daily living.She does drive .No DME . She may be dc with Gandhi . Offered
VN she declined at this time.
[facility] VN in past . [facility] hx
Pharmacy [facility]
PCP Dr English
PLAN Home declined VN
--- NOTE | 2024-11-20 16:10 | PTCARENOTE ---
Rec'd pt this AM. Pt is much more awake today, Vital signs stable. OOB to chair with 1 assist. PT evaluated pt. Concerned over severe right knee pain. Pt with hardware in her right leg. Notified Dr. Waller. X ray ordered.
[2024-11-20] MEDS: LIDOCAINE 4% PATCH 1 PATCH TOPICAL (16:43)
[2024-11-20] MEDS: NOVOLOG FLEXPEN-MODERATE RESISTANCE 3 UNITS SC (16:48)
[2024-11-20 16:57] LABS: Glucose - Point of Care 247 mg/dl (70-99)
[2024-11-20] MEDS: LOVENOX 40 MG SC (17:10)
[2024-11-20] MEDS: LIPITOR 40 MG PO (17:11)
[2024-11-20 21:57] LABS: Glucose - Point of Care 135 mg/dl (70-99)
[2024-11-20] MEDS: REMOVE LIDOCAINE PATCH 1 PATCH REMOVE (23:04)
[2024-11-21] VITALS (10 sets, daily range): BP systolic 104–147; BP diastolic 50–83; BMI 26.6
[2024-11-21 05:11] LABS: Glucose - Point of Care 57 mg/dl (70-99)
[2024-11-21 05:33] LABS: Glucose - Point of Care 58 mg/dl (70-99)
[2024-11-21] MEDS: SYNTHROID 112 MCG PO (05:47)
[2024-11-21] MEDS: UNASYN IV ×2 (05:47→12:18)
[2024-11-21 06:00] LABS: Glucose - Point of Care 67 mg/dl (70-99)
--- NOTE | 2024-11-21 06:13 | GLUCOSE ---
SITUATION: Pt's dexcom alerting that pt's sugar was under 70. Accucheck read 57. Pt given 4 oz OJ and glucose rechecked after 15 minutes which was 58. Pt states crackers usually work better to bring her blood sugar up when it drops. Pt given 4 oz OJ
and peanut butter crackers. Repeat glucose 15 minutes later 67. House provider notified. Pt given additional 4 oz OJ and repeat glucose 15 minutes later was 96. Will continue to monitor.
BACKGROUND:
ASSESSMENT:
RECOMMENDATION:
[2024-11-21 06:19] LABS: Glucose - Point of Care 96 mg/dl (70-99)
[2024-11-21 08:31] LABS: Glucose - Point of Care 176 mg/dl (70-99)
[2024-11-21] MEDS: COREG 3.125 MG PO ×2 (08:33→21:17)
[2024-11-21] MEDS: CLARITIN 10 MG PO (08:33)
[2024-11-21] MEDS: LIDOCAINE 4% PATCH 1 PATCH TOPICAL (08:35)
[2024-11-21] MEDS: NOVOLOG FLEXPEN-MODERATE RESISTANCE SC ×2 (08:35→17:24)
[2024-11-21] MEDS: TYLENOL 1000 MG PO ×3 (08:36→22:16)
[2024-11-21] MEDS: TRIAMCINOLONE ACETONIDE 0.1% OINTMENT 1 APPLIC TOPICAL ×3 (08:36→22:16)
[2024-11-21] MEDS: LOW STRENGTH ASPIRIN 81 MG PO (08:36)
--- NOTE | 2024-11-21 08:54 | W.PN.HOSP.TC ---
Addendum entered and electronically signed by Shabbir Waller MD 11/21/24 14:49:
Patient has an allergic reaction to Ancef. Will change antibiotics to Augmentin instead of Keflex.
Original Note:
Today's Communication/Plan
-
Stable for telemetry
Assessment / Plan
Assessment / Plan
HPI: 74y F with PMH significant for DM-I, hypertension and CHF who presents to ED complaining of itching all over, b/l LE swelling and leg pain. Patient states that she developed back pain a few months ago. She was evaluated on multiple
occasions at [place] and reportedly ultimately diagnosed with lumbar fractures requiring surgical fixation. She underwent lumbar fusion at [facility] at the end of September - followed by a rehab stay. Patient states that she was doing well until the past
week when she noted significant swelling in the LEs with increased pain / 'tightness' in both calves. She complains of itching all over and palpable hives / rash. For the past 2 days her glucose at home has been very high. Patient states that her
valsartan was changed to losartan and otherwise denies any recent med changes, new medications, new detergents / shampoos / soaps / etc
#Acute on chronic heart failure with a reduced ejection fraction
#Severe pulmonary hypertension
Cardiology following, diuresed well on Lasix 40 mg IV twice daily
Cardiology transition patient to oral Lasix 40 mg p.o. daily today
Echo EF 35-40%, trend creatinine, trend daily weights
#Right knee pain
#Recent mechanical fall 3 days prior to admission
X-rays negative, continue pain control, continue lidocaine patch
#Nonischemic myocardial injury troponin elevation
Likely from CHF
#Status post recent lumbar fusion
Small open wound at the proximal aspect noted
Wound care, started IV Ancef for surrounding erythema, D3/7
Will change to Keflex for an additional 4 more days
#Hypokalemia
#Hypomagnesemia
Repleted and resolved
#Dermatitis
Suspect secondary to allergy
Triamcinolone ointment 3 times daily, Benadryl as needed
#Uncontrolled type 1 diabetes with severe hyperglycemia
Not in diabetic ketoacidosis
Hemoglobin A1c 8.6
Decrease Lantus to 16 units subcu daily, continue sliding scale insulin
#Iron deficiency anemia, likely chronic
Iron studies reviewed
Started oral iron, trend hemoglobin
#Hypothyroidism
TSH normal, continue levothyroxine
DVT prophylaxis�subcu Lovenox
Full code
Total time spent to see the patient on the floor, examine the patient, review data and lab results, discuss treatment plan with patient, nursing staff around 40 minutes.
Physical Exam
General: No acute distress
HEENT: Normocephalic, Atraumatic, EOMI, MMM
Respiratory:
Diminished breath sounds at the bases with faint basilar crackles
Cardiac: Normal S1/S2, Regular Rate and Rhythm
GI: Soft, Nontender, Nondistended, Normal Bowel Sounds
Extremities: No Clubbing, Cyanosis
Bilateral lower extremity edema
Neuro: Nonfocal/Grossly Intact
Psych: Calm, Cooperative
Derm:
Erythematous maculopapular rash noted on her chest, with scratch freeman
Anticipated Discharge: 24 - 48 hours
Subjective/Interval History
-
Date of Service: November 21, 2024
Patient hypoglycemic this morning. Reports feeling jittery. Denies lightheadedness, dizziness. No chest pain, no shortness of breath. No fever, no vomiting.
Objective Data
-
Labs:
Laboratory Results
11/21/24
06:00
WBC Pending
Hgb Pending
Hct Pending
Plt Count Pending
Sodium Pending
Potassium Pending
Chloride Pending
Carbon Dioxide Pending
BUN Pending
Creatinine Pending
Glucose Pending
Calcium Pending
Vital Signs:
Vital Signs
Temp Pulse Resp BP Pulse Ox
97.8 F 91 23 144/62 97
11/20/24 23:00 11/21/24 08:00 11/20/24 12:00 11/21/24 08:00 11/21/24 08:01
I&O
11/20/24 11/21/24 11/22/24
06:59 06:59 06:59
Intake Total 1320 / 1320 480 / 480
Output Total 3025 / 3025 1850 / 1850
Balance -3025 / -3025 -530 / -530 480 / 480
--- NOTE | 2024-11-21 10:23 | W.PN.CARDCBS ---
Today's Communication / Plan
-
Start Lasix 40 mg daily
Continue Coreg and will add lisinopril given reduced ejection fraction and follow renal function
Try to get old records and may consider ischemic evaluation prior to discharge
Impression / Plan
-
PCP: Mustapha English
Projection Camera Operator: Unknown
Impression:
Acute systolic CHF
Cardiomyopathy ejection fraction of 35-40% on 11/19/2024
Severe pulm hypertension 11/19/2024
Non-STEMI with troponin of 0.5
Hypertension
Diabetes mellitus type 1, poorly controlled
Recent lumbar fusion
Microcytic anemia
Hypothyroidism
History of DVT/PE
Echocardiogram 11/19/2024: Ejection fraction 35 to 40%, hypokinesis of inferior septum, anterior septum, inferior and apex. Severe pulm hypertension PA systolic of 68 mmHg assuming right atrial pressure 15 mm gonzález
Recommendations:
She appears stable on room air
Lasix was held as felt to be overdiuresed but will start Lasix 40 mg daily
Continue Coreg and will add lisinopril for reduced ejection fraction and follow renal function
Try to get records from prior admission
Might consider ischemic evaluation depending on her course with possible catheterization
Progress Note - Projection Camera Operator
Subjective
Date of Service: November 21, 2024
No chest pain or shortness of breath
Objective
Labs:
Labs
Hgb 9.3 g/dL (12.0-16.0) L 11/20/24 03:29
Hct 28.4 % (37.0-47.0) L 11/20/24 03:29
Plt Count 292 10^3/uL (130-400) 11/20/24 03:29
Sodium 136 mmol/L (135-145) 11/20/24 03:29
Potassium 4.9 mmol/L (3.5-5.1) D 11/20/24 03:29
BUN 28 mg/dl (7-17) H 11/20/24 03:29
Creatinine 1.1 mg/dL (0.6-1.0) H 11/20/24 03:29
Glucose 339 mg/dl (70-99) H 11/20/24 03:29
Troponins
11/18/24 11/19/24 11/19/24
21:40 00:19 05:23
Troponin I 0.320 H* Cancelled 0.447 H* D
11/19/24 11/19/24 11/19/24
12:23 17:48 19:40
Troponin I 0.515 H* Cancelled 0.366 H* D
11/20/24
03:29
Troponin I 0.274 H* D
Vital Signs and I&O:
Vital Signs
Temp Pulse Resp BP Pulse Ox
97.8 F 91 23 144/62 97
11/20/24 23:00 11/21/24 08:00 11/20/24 12:00 11/21/24 08:00 11/21/24 08:01
Vital Signs
Temp Pulse Resp BP Pulse Ox
97.8 F 91 23 144/62 97
11/20/24 23:00 11/21/24 08:00 11/20/24 12:00 11/21/24 08:00 11/21/24 08:01
Intake & Output
11/19/24 11/20/24 11/21/24 11/22/24
06:59 06:59 06:59 06:59
Intake Total 1320 / 1320 480 / 480
Output Total 3025 / 3025 1850 / 1850
Balance -3025 / -3025 -530 / -530 480 / 480
Physical Exam
Physical Exam
General: Well developed, well nourished in NAD.
Neck: Supple, no JVD, HJR, carotids +2 B/L, no bruits bilaterally.
Heart: Non displaced PMI, RRR, no murmurs, No S3, S4, no rubs.
Lungs: Clear to auscultation bilaterally, no wheeze, rhonchi, rubs bilaterally,
normal expiratory phase.
Extremities: No clubbing, cyanosis or edema bilaterally.
Neuro: Grossly nonfocal, awake, alert and oriented x3.
[2024-11-21] MEDS: LANTUS 0.2 UNITS SC (10:43)
[2024-11-21 12:17] LABS: Glucose - Point of Care 388 mg/dl (70-99)
[2024-11-21] MEDS: ZESTRIL 5 MG PO (12:18)
[2024-11-21] MEDS: LASIX 40 MG PO (12:18)
[2024-11-21] MEDS: FLUSH (NSS) 2 FLUSH IV (12:19)
[2024-11-21] MEDS: NOVOLOG FLEXPEN-MODERATE RESISTANCE 9 UNITS SC (12:20)
[2024-11-21] MEDS: FERROUS SULFATE ORAL LIQUID 300 MG PO (14:00)
--- NOTE | 2024-11-21 14:57 | PTCARENOTE ---
Patient alert and oriented, anxious at times. Recent back surgery at [place]. Large silicone dressing midback. Vertical incision approximated with openings. Recent fall with right knee injury. Xray negative. Assist x1 with rolling walker.
Patient has pain at knee with ambulation and unsteady due to knee pain. SR on monitor. VS stable. Will monitor.
--- NOTE | 2024-11-21 16:05 | CM ---
CM following re: discharge planning.
Reviewed pt's chart, met with pt.
CM consulted to assist pt with discharge to a SNF.
PT and OT evaluations noted - SNF level of care recommended.
CM discussed it with the pt. Pt stated she just discharged from [facility] one week ago. Pt declined SNF level of care and preferred return back home with [facility]. A referral to [facility] made.
D/C plan: home with [facility] and family support.
--- NOTE | 2024-11-21 16:06 | PTCARENOTE ---
Report given to Kathleen CORREIA. Patient to be transferred to [address] [place] [address] [address] 1.
[2024-11-21 17:21] LABS: Glucose - Point of Care 80 mg/dl (70-99)
[2024-11-21] MEDS: LOVENOX 40 MG SC (17:23)
[2024-11-21] MEDS: LIPITOR 40 MG PO (17:23)
[2024-11-21] MEDS: AUGMENTIN 875 MG/125 MG 1 TABLET PO (21:18)
[2024-11-21] MEDS: REMOVE LIDOCAINE PATCH 1 PATCH REMOVE (21:18)
[2024-11-21 21:45] LABS: Glucose - Point of Care 264 mg/dl (70-99)
[2024-11-22] VITALS (8 sets, daily range): BP systolic 109–127; BP diastolic 52–62; PULSE 85–93; O2SAT 98; BMI 25.6
[2024-11-22 05:34] LABS: Glucose - Point of Care 96 mg/dl (70-99)
--- NOTE | 2024-11-22 05:34 | PTCARENOTE ---
Pt notified RN that her dexcom showed her blood sugar was 66. This RN gave her orange juice and saltines and rechecked her blood sugar with the accucheck machine and pt came up to 96. Will continue to monitor blood sugar and pass along to day
shift to check in with patient about her sugar frequently because pt's Lantus is given during the day and making her daytime blood sugars lower than normal.
[2024-11-22] MEDS: SYNTHROID 112 MCG PO (05:52)
[2024-11-22 07:47] LABS: Hematocrit 29.8 % (37.0-47.0); Hemoglobin 9.3 g/dL (12.0-16.0); Mean Corp Hgb Conc. 31.2 g/dL (33.0-37.0); Mean Corpuscular Volume 80.3 fL (81.0-99.0); Platelet Count 364 10^3/uL (130-400); Red Cell Dist. Width 17.0 % (11.5-14.5)
[2024-11-22 07:53] LABS: Blood Urea Nitrogen 25 mg/dl (7-17); Calcium 9.0 mg/dl (8.4-10.2); Carbon Dioxide 26 mmol/L (22-30); Chloride 104 mmol/L (98-107); Estimated Creatinine Clearance 37 ml/min; Glucose 120 mg/dl (70-99); Potassium 5.7 mmol/L (3.5-5.1); Sodium 136 mmol/L (135-145); eGFR 48.09
[2024-11-22 07:53] LABS: Glucose - Point of Care 128 mg/dl (70-99)
[2024-11-22] MEDS: NOVOLOG FLEXPEN-MODERATE RESISTANCE SC (08:19)
[2024-11-22] MEDS: TYLENOL 1000 MG PO ×3 (08:20→20:36)
[2024-11-22] MEDS: LOW STRENGTH ASPIRIN 81 MG PO (08:21)
[2024-11-22] MEDS: ZESTRIL 5 MG PO (08:21)
[2024-11-22] MEDS: LASIX 40 MG PO (08:21)
[2024-11-22] MEDS: CLARITIN 10 MG PO (08:21)
[2024-11-22] MEDS: AUGMENTIN 875 MG/125 MG 1 TABLET PO ×2 (08:22→20:35)
[2024-11-22] MEDS: COREG 3.125 MG PO ×2 (08:22→20:36)
[2024-11-22] MEDS: LIDOCAINE 4% PATCH 1 PATCH TOPICAL (08:22)
[2024-11-22] MEDS: TRIAMCINOLONE ACETONIDE 0.1% OINTMENT 1 APPLIC TOPICAL ×3 (08:23→20:41)
[2024-11-22] MEDS: LOKELMA 5 GRAM PO ×2 (10:28→12:48)
[2024-11-22 10:33] LABS: Magnesium 1.9 mg/dl (1.6-2.3)
[2024-11-22 11:46] LABS: Glucose - Point of Care 327 mg/dl (70-99)
[2024-11-22 12:01] LABS: Potassium 6.0 mmol/L (3.5-5.1)
[2024-11-22] MEDS: LANTUS 0.16 UNITS SC (12:01)
[2024-11-22] MEDS: NOVOLOG FLEXPEN-MODERATE RESISTANCE 7 UNITS SC (12:02)
--- NOTE | 2024-11-22 12:19 | W.PN.HOSP.TC ---
Addendum entered and electronically signed by Quang Johnson MD 11/22/24 13:23:
#Acute on chronic urinary retention
Has outpatient urologist. Recently passed TOV, now with hernandez again
follow up woith urology upon d/c. Plan to d/c with catheter
Original Note:
Today's Communication/Plan
-
Lokelma
follow BMP
await call back
Assessment / Plan
Assessment / Plan
74y F with PMH significant for DM-I, hypertension and CHF who presents to ED complaining of itching all over, b/l LE swelling and leg pain. Patient states that she developed back pain a few months ago. She was evaluated on multiple occasions at
[place] and reportedly ultimately diagnosed with lumbar fractures requiring surgical fixation (by Dr. Handy). She underwent lumbar fusion at [facility] at the end of September - followed by a rehab stay. Patient states that she was doing well until the past
week when she noted significant swelling in the LEs with increased pain / 'tightness' in both calves. She complains of itching all over and palpable hives / rash. For the past 2 days her glucose at home has been very high. Patient states that her
valsartan was changed to losartan and otherwise denies any recent med changes, new medications, new detergents / shampoos / soaps / etc
A/P
#Hyperkalemia
can be 2/2 oversupplementation
Lokelma
follow potassium
#Acute on chronic heart failure with a reduced ejection fraction
#Severe pulmonary hypertension
Cardiology following, diuresed well on Lasix 40 mg IV twice daily
Cardiology transition patient to oral Lasix 40 mg p.o. daily, no further inpatient ischemic w/u planned
Echo EF 35-40%, trend creatinine, trend daily weights
#Right knee pain
#Recent mechanical fall 3 days prior to admission
X-rays negative, continue pain control, continue lidocaine patch
#Nonischemic myocardial injury troponin elevation
Likely from CHF
#Status post recent lumbar fusion with wound dehiscence
No significant signs of infection
Left message to to call me back - will need close follow up
Small open wound at the proximal aspect noted
Augmentin (as had reaction to Keflex)
#Hypokalemia
#Hypomagnesemia
Repleted and resolved
#Dermatitis
Suspect secondary to allergy
Triamcinolone ointment 3 times daily, Benadryl as needed
#Uncontrolled type 1 diabetes with severe hyperglycemia
Not in diabetic ketoacidosis
Hemoglobin A1c 8.6
Decrease Lantus to 16 units subcu daily, continue sliding scale insulin
#Iron deficiency anemia, likely chronic
Iron studies reviewed
Started oral iron, trend hemoglobin
#Hypothyroidism
TSH normal, continue levothyroxine
DVT prophylaxis�subcu Lovenox
Full code
Total time spent to see the patient on the floor, examine the patient, review data and lab results, discuss treatment plan with patient, nursing staff around 60 minutes.
Anticipated Discharge: 24 - 48 hours
Subjective/Interval History
-
Date of Service: November 22, 2024
Objective Data
-
Labs:
Laboratory Results
11/22/24 11/22/24
06:40 11:37
WBC 7.4
Hgb 9.3 L
Hct 29.8 L
Plt Count 364 D
Sodium 136
Potassium 5.7 H 6.0 H
Chloride 104
Carbon Dioxide 26
BUN 25 H
Creatinine 1.2 H
Glucose 120 H
Calcium 9.0
Vital Signs:
Vital Signs
Temp Pulse Resp BP Pulse Ox
97.3 F 79 20 121/55 100
11/22/24 11:25 11/22/24 11:25 11/22/24 11:25 11/22/24 11:25 11/22/24 11:25
I&O
11/21/24 11/22/24 11/23/24
06:59 06:59 06:59
Intake Total 1320 / 1320 1885 / 1885
Output Total 1850 / 1850 4090 / 4090
Balance -530 / -530 -2205 / -2205
Review of Systems
-
History Source: Patient
All other systems: Reviewed and negative
Physical Exam
-
General: No Apparent Distress
HEENT: Normocephalic
Respiratory: Clear to Auscultation
GI: Soft, Nontender and Nondistended
Skin: Warm
Neuro: Awake, Alert, Oriented and AO x 3
Psych: Calm
--- NOTE | 2024-11-22 14:09 | W.PN.UPDATE ---
Update Note
Progress Note Update
As per communication with PANEL LAY UP WORKER - advise to cont total of 10 days of Augmentin, call office as soon as discharged and schedule appt - office will accommodate for close follow up. ALso lumbar XR prior to visit - office sending
order. Imaging can be done in any [place] facility. Instructions added to D/C section
--- NOTE | 2024-11-22 14:40 | WOUNDNOTE ---
[facility] RN note: Patient admitted with
See H&P for complete history.
PMH: Per Physician note, DM-I,Chronic HF - Unknown Type,Hypertension,Hypothyroidism,Osteoporosis
Latent TB (Treated with 9 months of INH in 1970s)
Wound Location and type/assessment: Patient admitted with dehisced wound s/p lumbar surgery at [place]. Upon appearance drainage appears to be purulent. Per hospitalist, drainage likely fibrin. No odor note or induration noted.
Appetite: Good
Pressure redistribution devices in place: Centrella Max Air, patient turns self in bed, instructed to keep heels off-loaded with pillows under calves when in bed.
Plan: Per Physician note, patient should follow up with surgeon as planned after discharge and complete 10 day course of Augmentin as ordered. Wound cleaned with Vashe and open areas covered with Xeroform.
Will confirm orders with hospitalist and update nurse.MASOOD Moreira updated. Updated care plan and will follow as needed.
Note to case management of equipment requested for discharge:
Recommend follow up at wound care center upon discharge.
--- NOTE | 2024-11-22 15:30 | W.PN.CARDCBS ---
Addendum entered and electronically signed by Wil Valerio MD 11/22/24 16:04:
I saw and examined the patient.
The TRAILHEAD CONSTRUCTION WORKER or PA's note was reviewed and I agree with the note.
Comment: General: Well developed, well nourished in NAD.
Neck: Supple, no JVD, HJR, carotids +2 B/L, no bruits bilaterally.
Heart: Non displaced PMI, RRR, no murmurs, No S3, S4, no rubs.
Lungs: Scattered rhonchi
Extremities: No clubbing, cyanosis or edema bilaterally.
Neuro: Grossly nonfocal, awake, alert and oriented x3.
She remains cardiovascular stable. We discussed her reduced ejection fraction and she wishes medical therapy for now and we will discuss outpatient cardiology ischemic evaluation with her primary cooky machine operator at [facility]. She reports having
had a stress test in the past few months that was okay. Ejection fraction was 45% on the prior echocardiogram but appears more reduced on echocardiogram during this admission. Of note Entresto and Farxiga were stopped in the past due to side
effects. Perhaps she had hyperkalemia with Entresto as potassium is elevated on lisinopril during this admission. Stable cardiology status for discharge. Discussed with primary service
Original Note:
Today's Communication / Plan
-
Continue PO lasix
No plans for inpatient ischemic evaluation
Continue Coreg
Lisinopril stopped due to hyperkalemia, await repeat labs
Follow up to be arranged.
Impression / Plan
-
PCP: Mustapha English
Document Manager: Dr. Avila ([facility])
Impression:
Presented with fatigue, SOB
Acute HFrEF
CM, EF 35-40% by echo 11/19/2024
Severe pulm hypertension 11/19/2024
NSTEMI, peak troponin of 0.5
Paroxysmal atrial fibrillation
Not chronically on OAC due to anemia
Hypertension
Diabetes mellitus type 1, poorly controlled
Recent lumbar fusion
Microcytic anemia
Hypothyroidism
h/o DVT/PE
Echo 06/2024: EF 45%, no RWMA
Echo 11/19/2024: EF 35 to 40%, hypokinesis of inferior septum, anterior septum, inferior and apex. Severe pulm hypertension PA systolic of 68 mmHg assuming right atrial pressure 15 mmHg
Plan:
-Presented with fatigue, SOB. Admitted with acute heart failure exacerbation.
-Diuresed with IV lasix earlier in admission, however then lasix placed on hold given concern for over-diuresis.
-Continue lasix 40mg PO daily. Weight down at least 7lbs, down to 149 lbs on 11/22.
-Creat stable at 1.2.
-Now back on lasix PO 40mg daily.
-Echo 11/19 showed EF 35-40%. Prior records partially obtained from primary cooky machine operator. Most recent echo 06/2024 revealed EF of 45%.
-Elevated troponin noted, peaking at 0.515. Medically managing as nonischemic myocardial injury for now. Reportedly had recent OP PET/CT stress testing w/ primary cooky machine operator.
-Continue carvedilol. Lisinopril added, however then developed hyperkalemia 11/22 with K up to 6.0. Lisinopril stopped. Await repeat labs this PM.
-Previously SGLT2 inhibitor stopped due to side effects/urinary retention per OP note
-Known h/o paroxysmal atrial fibrillation. Not on anticoagulation due to history of anemia.
-Should follow up w/ primary cooky machine operator, will call to help arrange.
HPI: Patient is a pleasant 74-year-old female with a past medical history significant for diabetes mellitus type 1, hypertension, hypothyroidism, osteoporosis, latent TB treated in the 1970s, prior history of DVT/PE, and reported heart failure of
unknown EF who presents due to fatigue, weakness, lower extremity swelling, shortness of breath, itchiness, and hyperglycemia. Patient somnolent but easily arousable on examination. Per nursing, patient had recently received IV opioids for pain
and pruritus. Patient denies any symptoms at this current time. Patient denies chest pain, shortness of breath, palpitations, lightheadedness, dizziness, or weakness. In review of medical record, patient had reported feeling unwell for a few days
prior to admission with increasing lower extremity swelling and shortness of breath as well as difficult to control blood sugars. It is reported that she had progressive decline since discharge from her rehab roughly 1 week ago. Primary service
awaiting records from [facility].
Progress Note - Document Manager
Subjective
Date of Service: November 22, 2024
Objective
Labs:
11/22/24 06:40
Labs
Hgb 9.3 g/dL (12.0-16.0) L 11/22/24 06:40
Hct 29.8 % (37.0-47.0) L 11/22/24 06:40
Plt Count 364 10^3/uL (130-400) D 11/22/24 06:40
Sodium 136 mmol/L (135-145) 11/22/24 06:40
Potassium 6.0 mmol/L (3.5-5.1) H 11/22/24 11:37
BUN 25 mg/dl (7-17) H 11/22/24 06:40
Creatinine 1.2 mg/dL (0.6-1.0) H 11/22/24 06:40
Glucose 120 mg/dl (70-99) H 11/22/24 06:40
Troponins
11/19/24 11/19/24 11/20/24
17:48 19:40 03:29
Troponin I Cancelled 0.366 H* D 0.274 H* D
Vital Signs and I&O:
Vital Signs
Temp Pulse Resp BP Pulse Ox
97.3 F 79 20 121/55 100
11/22/24 11:25 11/22/24 11:25 11/22/24 11:25 11/22/24 11:25 11/22/24 11:25
Vital Signs
Temp Pulse Resp BP Pulse Ox
97.3 F 79 20 121/55 100
11/22/24 11:25 11/22/24 11:25 11/22/24 11:25 11/22/24 11:25 11/22/24 11:25
Intake & Output
11/20/24 11/21/24 11/22/24 11/23/24
06:59 06:59 06:59 06:59
Intake Total 1320 / 1320 1885 / 1885
Output Total 3025 / 3025 1850 / 1850 4090 / 4090
Balance -3025 / -3025 -530 / -530 -2205 / -2205
--- NOTE | 2024-11-22 16:09 | WOUNDNOTE ---
SURGICAL SPINE WOUND
--- NOTE | 2024-11-22 16:10 | WOUNDNOTE ---
SURGICAL SPINE WOUND
[2024-11-22 16:37] LABS: Glucose - Point of Care 252 mg/dl (70-99)
[2024-11-22] MEDS: NOVOLOG FLEXPEN-MODERATE RESISTANCE 5 UNITS SC (16:53)
[2024-11-22] MEDS: LIPITOR 40 MG PO (16:54)
[2024-11-22] MEDS: LOVENOX 40 MG SC (16:54)
[2024-11-22 18:10] LABS: Blood Urea Nitrogen 28 mg/dl (7-17); Calcium 8.5 mg/dl (8.4-10.2); Carbon Dioxide 27 mmol/L (22-30); Chloride 102 mmol/L (98-107); Estimated Creatinine Clearance 37 ml/min; Glucose 235 mg/dl (70-99); Potassium 5.2 mmol/L (3.5-5.1); Sodium 133 mmol/L (135-145); eGFR 48.09
[2024-11-22] MEDS: VIBRAMYCIN 100 MG PO (20:36)
[2024-11-22] MEDS: REMOVE LIDOCAINE PATCH 1 PATCH REMOVE (20:37)
[2024-11-22 21:22] LABS: Glucose - Point of Care 122 mg/dl (70-99)
[2024-11-23 03:44] VITALS: BP 129/59
[2024-11-23] MEDS: SYNTHROID 112 MCG PO (05:22)
[2024-11-23 06:00] VITALS: BMI 25.3
[2024-11-23 07:45] VITALS: BP 132/65
[2024-11-23 08:25] LABS: Hematocrit 27.4 % (37.0-47.0); Hemoglobin 8.6 g/dL (12.0-16.0); Mean Corp Hgb Conc. 31.4 g/dL (33.0-37.0); Mean Corpuscular Volume 81.8 fL (81.0-99.0); Nucleated Red Blood Cells % 0 %; Platelet Count 378 10^3/uL (130-400); Red Cell Dist. Width 17.3 % (11.5-14.5)
[2024-11-23 08:37] LABS: Glucose - Point of Care 46 mg/dl (70-99)
[2024-11-23] MEDS: NOVOLOG FLEXPEN-MODERATE RESISTANCE SC (08:38)
[2024-11-23 08:59] LABS: Glucose - Point of Care 49 mg/dl (70-99)
[2024-11-23 09:14] LABS: Glucose - Point of Care 88 mg/dl (70-99)
[2024-11-23 09:19] LABS: ALT (SGPT) 14 U/L (0-35); AST (SGOT) 23 U/L (14-36); Albumin 2.8 g/dl (3.5-5.0); Alkaline Phosphatase 65 U/L (38-126); Blood Urea Nitrogen 24 mg/dl (7-17); Calcium 9.0 mg/dl (8.4-10.2); Carbon Dioxide 24 mmol/L (22-30); Chloride 109 mmol/L (98-107); Estimated Creatinine Clearance 40 ml/min; Glucose 40 mg/dl (70-99); Potassium 4.9 mmol/L (3.5-5.1); Sodium 137 mmol/L (135-145); Total Protein 5.6 g/dl (6.3-8.2); eGFR 53.39
[2024-11-23] MEDS: AUGMENTIN 875 MG/125 MG 1 TABLET PO (09:24)
[2024-11-23] MEDS: LIDOCAINE 4% PATCH TOPICAL ×2 (09:24→09:33)
[2024-11-23] MEDS: TRIAMCINOLONE ACETONIDE 0.1% OINTMENT 1 APPLIC TOPICAL (09:24)
[2024-11-23] MEDS: CLARITIN 10 MG PO (09:25)
[2024-11-23] MEDS: LASIX 40 MG PO (09:25)
[2024-11-23] MEDS: COREG 3.125 MG PO (09:25)
[2024-11-23] MEDS: VIBRAMYCIN 100 MG PO (09:25)
[2024-11-23] MEDS: LOW STRENGTH ASPIRIN 81 MG PO (09:25)
[2024-11-23] MEDS: LANTUS SC (09:26)
[2024-11-23] MEDS: TYLENOL 1000 MG PO (09:26)
--- NOTE | 2024-11-23 10:54 | W.PN.CARDCBS ---
Today's Communication / Plan
-
Stable cardiology status for discharge
Follow-up with cardiology in [place]
Impression / Plan
-
PCP: Mustapha English
Supervisor Forming Department: Dr. Avila ([facility])
Impression:
Presented with fatigue, SOB
Acute HFrEF
CM, EF 35-40% by echo 11/19/2024
Severe pulm hypertension 11/19/2024
NSTEMI, peak troponin of 0.5
Paroxysmal atrial fibrillation
Not chronically on OAC due to anemia
Hypertension
Diabetes mellitus type 1, poorly controlled
Recent lumbar fusion
Microcytic anemia
Hypothyroidism
h/o DVT/PE
Echo 06/2024: EF 45%, no RWMA
Echo 11/19/2024: EF 35 to 40%, hypokinesis of inferior septum, anterior septum, inferior and apex. Severe pulm hypertension PA systolic of 68 mmHg assuming right atrial pressure 15 mmHg
Plan:
Stable cardiology status for discharge
Discussed possible ischemic evaluation with patient but she wishes medical therapy for now and will discuss with outpatient beekeeper at [facility]. Potassium has normalized. Will avoid RUSLAN inhibitor/ARB/Entresto given hyperkalemia. Continue
carvedilol.
Previously had side effects with urinary retention with SGLT2 inhibitors.
She has not been anticoagulated for A-fib due to history of anemia.
-Presented with fatigue, SOB. Admitted with acute heart failure exacerbation.
Elevated troponin noted, peaking at 0.515. Medically managing as nonischemic myocardial injury for now. Reportedly had recent OP PET/CT stress testing w/ primary beekeeper.
HPI: Patient is a pleasant 74-year-old female with a past medical history significant for diabetes mellitus type 1, hypertension, hypothyroidism, osteoporosis, latent TB treated in the , prior history of DVT/PE, and reported heart failure of
unknown EF who presents due to fatigue, weakness, lower extremity swelling, shortness of breath, itchiness, and hyperglycemia. Patient somnolent but easily arousable on examination. Per nursing, patient had recently received IV opioids for pain
and pruritus. Patient denies any symptoms at this current time. Patient denies chest pain, shortness of breath, palpitations, lightheadedness, dizziness, or weakness. In review of medical record, patient had reported feeling unwell for a few days
prior to admission with increasing lower extremity swelling and shortness of breath as well as difficult to control blood sugars. It is reported that she had progressive decline since discharge from her rehab roughly 1 week ago. Primary service
awaiting records from [facility].
Progress Note - Supervisor Forming Department
Subjective
Date of Service: November 23, 2024
No complaints
Objective
Labs:
11/23/24 07:41
11/23/24 07:41
Labs
Hgb 8.6 g/dL (12.0-16.0) L 11/23/24 07:41
Hct 27.4 % (37.0-47.0) L 11/23/24 07:41
Plt Count 378 10^3/uL (130-400) 11/23/24 07:41
Sodium 137 mmol/L (135-145) 11/23/24 07:41
Potassium 4.9 mmol/L (3.5-5.1) 11/23/24 07:41
BUN 24 mg/dl (7-17) H 11/23/24 07:41
Creatinine 1.1 mg/dL (0.6-1.0) H 11/23/24 07:41
Glucose 40 mg/dl (70-99) L* 11/23/24 07:41
Vital Signs and I&O:
Vital Signs
Temp Pulse Resp BP Pulse Ox
97.5 F 82 16 130/80 98
11/23/24 07:45 11/23/24 09:25 11/23/24 07:45 11/23/24 09:25 11/23/24 09:30
Vital Signs
Temp Pulse Resp BP Pulse Ox
97.5 F 82 16 130/80 98
11/23/24 07:45 11/23/24 09:25 11/23/24 07:45 11/23/24 09:25 11/23/24 09:30
Intake & Output
11/21/24 11/22/24 11/23/24 11/24/24
06:59 06:59 06:59 06:59
Intake Total 1320 / 1320 1885 / 1885 960 / 960
Output Total 1850 / 1850 4090 / 4090 2350 / 2350
Balance -530 / -530 -2205 / -2205 -1390 / -1390
Physical Exam
Physical Exam
General: Well developed, well nourished in NAD.
Neck: Supple, no JVD, HJR, carotids +2 B/L, no bruits bilaterally.
Heart: Non displaced PMI, RRR, no murmurs, No S3, S4, no rubs.
Lungs: Scattered rhonchi
Extremities: No clubbing, cyanosis or edema bilaterally.
Neuro: Grossly nonfocal, awake, alert and oriented x3.
--- NOTE | 2024-11-23 11:06 | W.PN.HOSP.TC ---
Addendum entered and electronically signed by Slime Cruz MD 11/23/24 12:49:
patient with hernandez x 4 weeks in September, followed closely with a Urologist. Urinary retention again in-house and hernandez replaced. Will DC with hernandez and plans to follow up with outpatient Urologist.
Original Note:
Today's Communication/Plan
-
expect DC post med rec completion
Assessment / Plan
Assessment / Plan
74y F with PMH significant for DM-I, hypertension and CHF who presents to ED complaining of itching all over, b/l LE swelling and leg pain. Patient states that she developed back pain a few months ago. She was evaluated on multiple occasions at
[place] and reportedly ultimately diagnosed with lumbar fractures requiring surgical fixation (by Dr. Handy). She underwent lumbar fusion at [facility] at the end of September - followed by a rehab stay. Patient states that she was doing well until the past
week when she noted significant swelling in the LEs with increased pain / 'tightness' in both calves. She complains of itching all over and palpable hives / rash. For the past 2 days her glucose at home has been very high. Patient states that her
valsartan was changed to losartan and otherwise denies any recent med changes, new medications, new detergents / shampoos / soaps / etc
A/P
#Hyperkalemia
-s/p Lokelma with good response
-avoid RUSLAN-I 2/2 hyperkalemia
#Acute on chronic heart failure with a reduced ejection fraction
#Severe pulmonary hypertension
Cardiology following, diuresed well on Lasix 40 mg IV twice daily
Cardiology transition patient to oral Lasix 40 mg p.o. daily, no further inpatient ischemic w/u planned
Echo EF 35-40%, prior echo showed EF 45% - patient wishes to complete work up as outpatient
#Right knee pain
#Recent mechanical fall 3 days prior to admission
X-rays negative, continue pain control, continue lidocaine patch
#Nonischemic myocardial injury troponin elevation
Likely from CHF
#Status post recent lumbar fusion with wound dehiscence
No significant signs of infection
Small open wound at the proximal aspect noted
Augmentin (as had reaction to Keflex) - DC for total 10 day course (16 [address]). [address] Johnson spoke to office yesterday: patient to call office as soon as discharged and schedule appt - office will accommodate for close follow up.
#Hypokalemia
#Hypomagnesemia
Repleted and resolved
#Dermatitis
Suspect secondary to allergy
Triamcinolone ointment 3 times daily, Benadryl as needed
#Uncontrolled type 1 diabetes with severe hyperglycemia
Hemoglobin A1c 8.6
Patient OK to resume home regimen at [facility] (denies periods of hypoglycemia at home)
#Iron deficiency anemia, likely chronic
Iron studies reviewed
Started oral iron, trend hemoglobin
#Hypothyroidism
TSH normal, continue levothyroxine
DVT prophylaxis�subcu Lovenox
Full code
Total time spent to see the patient on the floor, examine the patient, review data and lab results, discuss treatment plan with patient, nursing staff around 60 minutes.
Anticipated Discharge: Within 24 hours
Subjective/Interval History
-
Date of Service: November 23, 2024
she is feeling well this morning
up and walking around
sugar was low this morning. She takes Lantus at different timing at home and doesn't go as low. Feels comfortable going home on home regimen
Objective Data
-
Labs:
Laboratory Results
11/23/24
07:41
WBC 7.7
Hgb 8.6 L
Hct 27.4 L
Plt Count 378
Sodium 137
Potassium 4.9
Chloride 109 H
Carbon Dioxide 24
BUN 24 H
Creatinine 1.1 H
Glucose 40 L*
Calcium 9.0
Total Bilirubin 0.5
AST 23
ALT 14
Alkaline Phosphatase 65
Vital Signs:
Vital Signs
Temp Pulse Resp BP Pulse Ox
97.5 F 82 16 130/80 98
11/23/24 07:45 11/23/24 09:25 11/23/24 07:45 11/23/24 09:25 11/23/24 09:30
I&O
11/22/24 11/23/24 11/24/24
06:59 06:59 06:59
Intake Total 1885 / 1885 960 / 960
Output Total 4090 / 4090 2350 / 2350
Balance -2205 / -2205 -1390 / -1390
Review of Systems
-
History Source: Patient
All other systems: Reviewed and negative
Physical Exam
-
General: No Apparent Distress
HEENT: PERRLA
Respiratory: Clear to Auscultation; Negative Wheezes
Cardiac: Regular Rhythm and S1/S2
GI: Soft and Nontender
Musculoskeletal: No Edema
Skin: Warm and Dry; Negative Rash
Neuro: AO x 3
Psych: Calm
Data Reviewed
-
Diagnostic Radiology: Report Reviewed by me
Labs: Labs Reviewed by me
[2024-11-23 11:35] VITALS: BP 128/59; BP 129/58; BP 131/63; PULSE 91; PULSE 93
[2024-11-23 11:44] LABS: Glucose - Point of Care 238 mg/dl (70-99)
--- NOTE | 2024-11-23 12:00 | W.DS.TRANS ---
DC Summary - Hospital Sales Representative
-
Discharge Instructions:
Discharge Diagnosis/Procedures acute heart failure, lumbar spine wound
dehiscence
Diet Regular,Diabetic, Carb Controlled
Activity As tolerated
Driving Restrictions As prior to admission
Bathing Restrictions None
Blood Work BMP in one week
Wound Care cont total of 10 days of Augmentin and
Doxycycline, call office as soon as
discharged and schedule appt - office will
accommodate for close follow up. ALso lumbar XR
prior to visit - office sending order.
Imaging can be done in any [place] facility
Specialty Instructions Weigh Daily
Instructions: *PCP/Other Master Of Ceremonies Heart Failure Instructions
Stand-Alone Forms:
Changes to Home Medications: Yes
Discharge Medications:
DC Medications w/original date entered in [employer]
Benadryl 1 tab PO HS 11/18/24
atorvastatin 40 tab PO HS 11/18/24
cholecalciferol (vitamin D3) 125 mcg (5,000 unit) capsule 125 mcg PO DAILY 11/18/24
fenofibrate 145 tab PO DAILY 11/18/24
insulin aspart U-100 100 unit/mL (3 mL) subcutaneous pen (Novolog FlexPen U-100 Insulin aspart) 6 - 8 sliding scale dose SC DIRECTED 11/18/24
insulin glargine 100 unit/mL (3 mL) subcutaneous pen (Lantus Solostar U-100 Insulin) 10 unit SC HS 11/18/24
levothyroxine 112 mcg tablet 112 mcg PO DAILY 11/18/24
acetaminophen 500 mg tablet (Tylenol Extra Strength) 1,000 mg (2 x 500 mg) PO TID #0 tabs 11/23/24
amoxicillin 875 mg-potassium clavulanate 125 mg tablet 1 tab PO Q12 #16 tabs 11/23/24
aspirin 81 mg chewable tablet 81 mg PO DAILY #30 tabs 11/23/24
carvedilol 3.125 mg tablet 3.125 mg PO BID #60 tabs 11/23/24
doxycycline hyclate 100 mg capsule 100 mg PO Q12 #18 caps 11/23/24
furosemide 40 mg tablet 40 mg PO DAILY #30 tabs 11/23/24
lidocaine 4 % topical patch 1 patch topical DAILY #14 ea 11/23/24
loratadine 10 mg tablet 10 mg PO DAILY #14 tabs 11/23/24
triamcinolone acetonide 0.1 % topical ointment 1 applic topical BID #30 grams 11/23/24
Home Medication Changes
Complete Augmentin and Doxycycline course for post-op wound and follow up with Dr. Handy, as written above.
Stop Metoprolol. This is replaced with Coreg.
You are newly started on Aspirin 81mg daily.
You are newly started on Lasix 40mg daily. Please get labs in one week to monitor kidney function.
You are prescribed Claritin and Triamcinolone ointment for treatment of rash. Ok to stop once rash resolved.
Stop Valsartan as this caused elevated potassium levels.
Continue your prior insulin regimen at home.
Pending Results: No
--- NOTE | 2024-11-23 12:14 | CM ---
Patient stable for d/c today. [facility] accepted for services
Met w/ patient bedside, aware of d/c today. Patient unsure if she needs home PT as she has been walking around but remains agreeable to participate.
IMM verbally reviewed, copy provided, copy on chart
Daughter will transport home
Plan: Home w/ [facility]
[2024-11-23] MEDS: NOVOLOG FLEXPEN-MODERATE RESISTANCE 3 UNITS SC (12:27)
[2024-11-23 12:58] VITALS: BP 128/59; BP 129/58; BP 131/63; PULSE 91; PULSE 93
[2024-11-23] MEDS: FERROUS SULFATE ORAL LIQUID 300 MG PO (13:35)
--- NOTE | 2024-11-23 14:08 | W.DCSUMMARY ---
Discharge Summary
Discharge Data
Date of Admission: 11/19/24
Date of Discharge: 11/23/24
-
Pending Results: No
Hospital Course
Discharging Physician : Dr. Slime Cruz
Disposition : Home
Primary care physician : Dr. Mustapha English
Principal Discharge diagnosis : Acute heart failure reduced ejection fraction, Urinary Retention, Lumbar spine wound dehiscence
Hospital Course :
Ms. Catrina Mcnair is a 74 yo woman with hx DM I, essential HTN, HFrEF, lumbar spine fracture s/p lumbar fusion end of September 2024 with post-op urinary retention s/p hernandez presents to the ER with diffuse itching, swelling, and leg pain. She was
found to be volume overloaded on exam. BNP > 27,000, Trop 0.32. CXR with mild pulmonary edema. She was admitted to medicine with Cardiology consulting for acute heart failure.
Patient was diuresed with improvement in symptoms. Her weight dropped from 72.5kg to 66.8kg on day of discharge. She is newly prescribed Lasix 40mg daily. TTE with EF 35-40%, hypokinesis of inferior septum, anterior septum, inferior and apex.
Severe pulm hypertension PA systolic of 68 mmHg assuming right atrial pressure 15 mmHg. Prior echo showed EF 45%. Cardiology discussed plan with patient who opted for outpatient ischemic evaluation with her primary post acute care nurse. She is started on
aspirin 81mg daily and continued on LONG WALL MINING MACHINE TENDER Statin. Her LONG WALL MINING MACHINE TENDER Metoprolol is changed to Coreg BID. Lisinopril was initiated but patient had development of hyperkalemia so this is held on discharge.
During admission it was noted that patient had dehiscence of wound on lumbar spine. Plan of care discussed with her spine surgeon's team, advised total of 10 days of Augmentin + Doxy. Patient will call office post discharge to arrange close follow
up.
Regarding pruritis and rash, she was treated with Topical steroids and had significant relief. She was also treated with Claritin and benadryl as needed.
Hospital course complicated by urinary retention. With recent history of retention and need for 4 week hernandez, she is discharged with catheter and told to follow up closely with her outpatient Urologist.
She was also started on oral iron for ALEXANDRO, Hg remained stable during hospitalization.
Time spent on discharge was 35 minutes.
Important imaging findings :
CXR
IMPRESSION:
Findings of mild pulmonary edema with small bilateral pleural effusions and adjacent atelectasis.
Mild cardiomegaly.
Procedure findings :
Discharge Plan
-
Patient Disposition: Home (Routine Discharge)
Discharge Diagnosis/Procedures: acute heart failure reduced ejection fraction, lumbar spine wound dehiscence
Diet: Regular and Diabetic, Carb Controlled
Activity: As tolerated
Driving Restrictions: As prior to admission
Bathing Restrictions: None
Blood Work: BMP in one week
Wound Care: cont total of 10 days of Augmentin and Doxycycline, call office as soon as discharged and schedule appt - office will accommodate for close follow up. ALso lumbar XR prior to visit - office sending order. Imaging can be
done in any [place] facility
Specialty Instructions: Weigh Daily- Call MD for wt gain/loss 3 lbs overnight/5 lbs in 1 week
Activity Restrictions/Additional Instructions:
Wound Care Instructions Clean with Vashe moistened gauze. Cover open areas with Xeroform gauze and cover with dry dressing. Change daily and PRN for drainage.
Follow up with your Surgeon.
Instructions: *PCP/Other Bench Shear Operator Heart Failure Instructions
Referrals:
Wil Avila, [Non-Admitting Privileges] - 12/09/24 9:00 am
Referral Note: You have an appointment with Dr. Avila's nurse practitioner, Mara. Please call with questions.
Mustapha English MD [Family Provider, Family Practice] - in less than 1 week
Additional Discharge Medication Instructions: Please follow up with your outpatient Bench Shear Operator at next available appointment to discuss outpatient ischemic work up.
Please follow up with your Urologist at next available appointment to discuss hernandez catheter management.
Complete Augmentin and Doxycycline course for post-op wound and follow up with Dr. Handy, as written above.
Stop Metoprolol. This is replaced with Coreg.
You are newly started on Aspirin 81mg daily.
You are newly started on Lasix 40mg daily. Please get labs in one week to monitor kidney function.
You are prescribed Claritin and Triamcinolone ointment for treatment of rash. Ok to stop once rash resolved.
Stop Valsartan as this caused elevated potassium levels.
Continue your prior insulin regimen at home.
Doxycycline Precautions
�� Take with at least 6 oz H2O
�� Take with food but no calcium containing products like milk or cheese
�� Ideally you would not take any multivitamins, calcium, magnesium or zinc containing products.
�� If you must take one of these products make sure that the pills are by at least 3 hours.
�� Sit up for at least 30 minutes after each dose to prevent heartburn.
�� Your skin will be more sensitive to the sun while you are on doxycycline - it will be very easy for you to get a sunburn. ALWAYS WEAR SUNTAN LOTION AND TRY TO STAY OUT OF THE SUN.
Prescriptions:
New
furosemide 40 mg Tablet
40 mg PO DAILY Qty: 30 0RF
doxycycline hyclate 100 mg Capsule
100 mg PO Q12 Qty: 18 0RF
lidocaine 4 % Adhesive Patch,Medicated
1 patch topical DAILY Qty: 14 0RF
acetaminophen [Tylenol Extra Strength] 500 mg Tablet
1,000 mg PO TID Qty: 0 0RF
carvedilol 3.125 mg Tablet
3.125 mg PO BID Qty: 60 0RF
triamcinolone acetonide 0.1 % Ointment
1 applic topical BID Qty: 30 0RF
Rx Instructions:
Ok to stop once rash resolves
aspirin 81 mg Tablet,Chewable
81 mg PO DAILY Qty: 30 0RF
amoxicillin-pot clavulanate 875-125 mg Tablet
1 tab PO Q12 Qty: 16 0RF
loratadine 10 mg Tablet
10 mg PO DAILY Qty: 14 0RF
Continued
cholecalciferol (vitamin D3) 125 mcg (5,000 unit) Capsule
125 mcg PO DAILY
levothyroxine 112 mcg Tablet
112 mcg PO DAILY
insulin aspart U-100 [Novolog FlexPen U-100 Insulin] 100 unit/mL (3 mL) Insulin Pen
6 - 8 sliding scale dose SC DIRECTED
Patient Comments:
11/18/2024, pt. injects between 6-8 units on a sliding scale before meals per pt.; pt. does not know the breakdown of the sliding scale.
insulin glargine [Lantus Solostar U-100 Insulin] 100 unit/mL (3 mL) Insulin Pen
10 unit SC HS
Benadryl
1 tab PO HS
atorvastatin
40 tab PO HS
fenofibrate
145 tab PO DAILY
Discontinued
metoprolol succinate 25 mg Tablet Extended Release 24 Hr
25 mg PO DAILY
Rx Instructions:
doesn't remember the dose
valsartan 40 mg Tablet
1 tab PO DAILY
Discharge Orders:
Discharge Patient (As Directed); Ordered 11/23/24
Ordered By: Slime Cruz
Discharge Date and Time
Print Language: [place]
[2024-11-23 15:24] VITALS: BP 125/50
== END 2024-11-23 16:03 | disposition home health service (06) | DRG 291 ==
LOC: 4 EAST ACU 04:08
PROVIDERS: Family Medicine; Internal Medicine; Internal Medicine Cardiovascular Disease; Nurse Practitioner Family; Physician Assistant Medical; ADMITTING PHYSICIAN Hospitalist; ATTENDING PHYSICIAN Student in an Organized Health Care Education/Training Program; CONSULT PHYSICIAN Internal Medicine Cardiovascular Disease; EMERGENCY PHYSICIAN Student in an Organized Health Care Education/Training Program; FAMILY PHYSICIAN Family Medicine
DX: I11.0 Hypertensive heart disease with heart failure (principal); I50.23 Acute on chronic systolic (congestive) heart failure; E87.5 Hyperkalemia; I5A Non-ischemic myocardial injury (non-traumatic); I27.20 Pulmonary hypertension, unspecified; E87.6 Hypokalemia; E03.9 Hypothyroidism, unspecified; L29.9 Pruritus, unspecified; E11.65 Type 2 diabetes mellitus with hyperglycemia; I42.9 Cardiomyopathy, unspecified
CPT/HCPCS: 71046; 73564; 80048; 80053; 81003; 81015; 82010; 82728; 82805; 82947; 82962; 83036; 83540; 83550; 83735; 83880; 84132; 84443; 84484; 85025; 85027; 87040; 87086; 93005; 93306; 93970; 96372; 96374; 97163; 97167; 97530; 97535; 99291